=== PATIENT | female | born 1965 | race Two or more races ===

== ENCOUNTER 2019-02-23 | Emergency (ER) | payer SELFPAY ==
--- NOTE | 2019-02-23 02:51 | ER Document Report ---
HPI - HPI Time Seen by Provider: 02/23/19 02:20 Pain Level: 3 Context: Morbidly obese 53-year-old female with atrial fibrillation presents to the emergency department with chief complaint of right knee pain after a fall at the house. Patient states that she is overall immobile and will ambulate from her bed to the bathroom only. Patient states that whenever she gets up and she stops and stands she always falls. Tonight she was unable to get up and her son and EMS had to help lift her up. Patient denies any syncopal episode, denies palpitations, denies any chest pain. Patient denies any acute shortness of breath at this time. Patient states that she does have chronic right knee pain but it is acutely worse today. No other complaints. - MUSCULOSKELETAL Musculoskeletal: REPORTS: Extremity pain - RIGHT KNEE Past Medical History - Social History Smoking Status: Never Smoker Frequency of alcohol use: None Drug Abuse: None Family History: None Patient has suicidal ideation: No Patient has homicidal ideation: No - Past Medical History Cardiac Medical History: Reports: Hx Atrial Fibrillation, Hx Hypertension Vertical Provider Document - CONSTITUTIONAL Notes: PHYSICAL EXAMINATION: Reviewed vital signs and charting by RN GENERAL: Alert, interacts well. Morbidly obese HEAD: Normocephalic, atraumatic. EYES: Pupils equal and round. Extraocular movements intact. ENT: Oral mucosa moist, tongue midline. NECK: Full range of motion. Trachea midline. LUNGS: Clear to auscultation bilaterally, no wheezes, rales, or rhonchi. No respiratory distress. HEART: Irregularly irregular rhythm. No murmur ABDOMEN: soft, non-tender. No distention. Bowel sounds present EXTREMITIES: Moves all 4 extremities spontaneously. No edema, No cyanosis. Acute tenderness to palpation over the right patella PSYCH: Normal affect, normal mood. SKIN: Warm, dry, normal turgor. No rashes or lesions noted. Course - Re-evaluation Re-evalutation: 02/23/19 02:48 Exam is difficult due to body habitus but patient does have some tenderness over the right patella. Patient denies a syncopal episode so I have low suspicion the fall is related to her atrial fibrillation and possible CVA. Was a mechanical fall. I went to get a right knee complete to ensure that there is no fracture or patellar dislocation. 02/23/19 04:19 X-ray negative for any fracture or dislocation. It does show osteoarthritis the right knee with narrowing of the patellofemoral compartment. I explained this to patient and told her that she needs to follow-up with her primary doctor. Because patient is so morbidly obese due to her habitus she will be unable to walk. Patient at this time is stable for discharge. - Vital Signs Vital signs: Temp Pulse Resp BP Pulse Ox 97.5 F 95 18 123/67 94 02/23/19 00:00 02/23/19 00:00 02/23/19 00:00 02/23/19 00:00 02/23/19 00:00 Discharge - Discharge Clinical Impression: Right knee pain Qualifiers: Chronicity: acute Qualified Code(s): M25.561 - Pain in right knee Fall Qualifiers: Encounter type: initial encounter Qualified Code(s): W19.XXXA - Unspecified fall, initial encounter Condition: Stable Disposition: HOME, SELF-CARE Additional Instructions: You were seen in the emergency department for right knee pain after a fall just prior to arrival. X-ray did not show any concerning findings. This pain is chronic and it is important that you follow-up with your primary doctor to address this to try to get an orthopedic referral. Please return to the emergency department if you develop acute shortness of breath, chest pain, rapid heart rate, you pass out, or you have any other concerning symptoms.
--- NOTE | 2019-02-23 04:18 | RADIOLOGY REPORT (SQ) ---
EXAM: X-ray knee four or more views CLINICAL DATA: 53-year-old female with knee pain status post fall TECHNICAL DATA: Four x-ray views of the right knee were performed on 02/23/2019 at 2:55 AM. COMPARISONS: None FINDINGS: There is no evidence of acute fracture or dislocation. There is marked narrowing of the medial joint compartment. There is hypertrophic spurring of the femoral condyles, tibial plateau and posterior inferior patella. There is narrowing of the patellofemoral compartment. No pathologic lytic or sclerotic bone lesions are identified. Bone mineralization is decreased. No acute soft tissue abnormalities are identified. Vascular calcifications are noted along the popliteal artery and tibioperoneal trunk vessels. No definite joint effusion is identified. IMPRESSION: 1. No evidence of acute osseous injury. 2. Osteoarthritis of the right knee with greatest involvement of the medial joint compartment. 3. Diffuse bone demineralization.
[2019-02-23] MEDS ORDERED: HYDROCODONE/ACETAMINOPHEN 5-325 MG TABLET PO ONE (05:26)
[2019-02-23] MEDS ORDERED: IBUPROFEN 600 MG TABLET PO ONE (05:45)
[2019-02-23 09:43] VITALS: BP 106/64
== END 2019-02-23 09:47 | disposition home or self-care (01) ==
LOC: ER
DX: M25.561 Pain in right knee (principal); W19.XXXA Unspecified fall, initial encounter; Y92.009 Unspecified place in unspecified non-institutional (private) residence as the place of occurrence of the external cause; M17.11 Unilateral primary osteoarthritis, right knee; I10 Essential (primary) hypertension; I48.91 Unspecified atrial fibrillation; E66.01 Morbid (severe) obesity due to excess calories
CPT/HCPCS: 99283

== ENCOUNTER 2019-03-19 18:47 | Inpatient (IN) | payer MEDICAID ==
[2019-03-19] MEDS ORDERED: METHYLPREDNISOLONE INJ 125 MG/2 ML SDV IV ONE (20:43)
[2019-03-19] MEDS ORDERED: IPRATROPIUM/ALBUTEROL 0.5-2.5 MG/3 ML AMPUL NEB ONE (20:43)
--- NOTE | 2019-03-19 20:50 | ER Document Report ---
ED General - General Chief Complaint: Breathing Difficulty Stated Complaint: ALTERED MENTAL STATUS Time Seen by Provider: 03/19/19 20:23 TRAVEL OUTSIDE OF THE [place] IN LAST 30 DAYS: No - HPI Notes: This is a 54-year-old female who presents with a complaint of shortness of breath. Patient says she has had some cough and congestion for the past several days. Patient states that her family states she was "loopy" today. She is supposed to wear oxygen at home but has not been compliant with her oxygen t herapy. She denies any chest pain. She denies any headache. She is a poor historian. Describes her symptoms as moderate. There are no obvious aggravating relieving factors. - Related Data Allergies/Adverse Reactions: Sulfa (Sulfonamide Antibiotics) Allergy (Verified 02/23/19 00:37) Past Medical History - Social History Smoking Status: Unknown if Ever Smoked Family History: None Patient has suicidal ideation: No Patient has homicidal ideation: No - Past Medical History Cardiac Medical History: Reports: Hx Atrial Fibrillation, Hx Hypertension Endocrine Medical History: Reports: Hx Diabetes Mellitus Type 2 Psychiatric Medical History: Reports: Hx Anxiety, Hx Depression Review of Systems - Review of Systems Cardiovascular: denies: Chest pain Respiratory: Cough, Short of breath, Sputum Gastrointestinal: denies: Abdominal pain Neurological/Psychological: denies: Headaches -: Yes All other systems reviewed and negative Physical Exam - Vital signs Vitals: Temp Resp BP Pulse Ox 98.1 F 27 H 117/71 93 03/19/19 18:53 03/19/19 18:53 03/19/19 18:53 03/19/19 18:53 - General General appearance: Other - No acute distress. Patient appears somewhat somnolent. - HEENT Head: Normocephalic - Respiratory Respiratory status: No respiratory distress Breath sounds: Decreased air movement, Rales, Wheezing - Cardiovascular Rhythm: Regular Heart sounds: Normal auscultation Murmur: No - Abdominal Inspection: Morbidly Obese Distension: No distension Bowel sounds: Normal Tenderness: Nontender Organomegaly: No organomegaly - Extremities General upper extremity: Other - There is slight tenderness of the left shoulder. Patient notes that she fell on Sunday and hurt her shoulder. Bilateral lower extremity peripheral edema General lower extremity: Edema - Neurological Neuro grossly intact: Yes Orientation: AAOx4 [place]oy Coma Scale Eye Opening: Spontaneous [place] Coma Scale Verbal: Oriented [place] Coma Scale Motor: Obeys Commands [place] Coma Scale Total: 15 Speech: Normal Cranial nerves: Normal - Nonfocal neurologic exam. There is no motor, sensory or cerebellar deficits. - Skin Skin Temperature: Warm Skin Moisture: Dry Skin Color: Normal Course - Re-evaluation Re-evalutation: 03/19/19 20:49 Differential diagnosis includes CHF exacerbation versus pneumonia versus COPD.. I am concerned also about hypercarbia given the fact that patient has been noncompliant with her oxygen use. Will get a blood gas. 03/19/19 21:03 ABG shows hypercapnia with PCO2 of 73. Will put patient on BiPAP. 03/19/19 22:54 EKG shows atrial fibrillation at 96 bpm. No acute injury pattern. Patient's care discussed with Dr. Mccormick. Will admit. He recommends admission to the medical floor. 03/19/19 23:02 Patient reevaluated. Patient is tolerating BiPAP well. Hemodynamically stable. - Vital Signs Vital signs: Temp Pulse Resp BP Pulse Ox 98.1 F 94 15 115/73 99 03/19/19 18:53 03/19/19 19:00 03/19/19 22:01 03/19/19 22:01 03/19/19 22:01 - Laboratory Result Diagrams: 03/19/19 22:10 03/19/19 21:23 Laboratory results interpreted by me: 03/19/19 03/19/19 03/19/19 20:42 21:23 21:23 Hgb Hct MCHC RDW Carbonic Acid 2.22 H ABG pH 7.25 L ABG pCO2 73.8 H* ABG pO2 67.3 L ABG HCO3 31.5 H ABG Total CO2 33.8 H ABG O2 Saturation 89.5 L Carbon Dioxide 31 H BUN 62 H Creatinine 3.08 H Est GFR ( Amer) 19 L Est GFR (MDRD) Non-Af 16 L Total Bilirubin 1.6 H Direct Bilirubin 1.2 H AST 82 H Alkaline Phosphatase 181 H NT-Pro-B Natriuret Pep 9280 H Albumin 3.4 L 03/19/19 22:10 Hgb 10.8 L Hct 35.5 L MCHC 30.5 L RDW 23.4 H Carbonic Acid ABG pH ABG pCO2 ABG pO2 ABG HCO3 ABG Total CO2 ABG O2 Saturation Carbon Dioxide BUN Creatinine Est GFR ( Amer) Est GFR (MDRD) Non-Af Total Bilirubin Direct Bilirubin AST Alkaline Phosphatase NT-Pro-B Natriuret Pep Albumin Discharge - Discharge Clinical Impression: Acute respiratory failure with hypercapnia Acute exacerbation of CHF (congestive heart failure) Qualifiers: Heart failure type: unspecified Qualified Code(s): I50.9 - Heart failure, un specified Chronic kidney disease Qualifiers: Chronic kidney disease stage: unspecified stage Qualified Code(s): N18.9 - Chr onic kidney disease, unspecified Condition: Fair Disposition: ADMITTED INPATIENT Admitting Provider: Jace (Hospitalist) Unit Admitted: Medical Floor
[2019-03-19 20:58] LABS: ARTERIAL BLOOD BASE EXCESS 2.5 mmol/L; ARTERIAL BLOOD H2CO3 2.22 mmol/L (1.05-1.35); ARTERIAL BLOOD HCO3 31.5 mmol/L (20-24); ARTERIAL BLOOD O2 SATURATION 89.5 % (94-98); ARTERIAL BLOOD PH 7.25 (7.35-7.45); ARTERIAL BLOOD PO2 67.3 mmHg (80-100); ARTERIAL BLOOD TOTAL CO2 33.8 mmol/L (21-25)
[2019-03-19 20:59] LABS: ARTERIAL BLOOD FIO2 2L
[2019-03-19 21:00] LABS: ARTERIAL BLOOD PCO2 73.8 mmHg (35-45)
[2019-03-19] MEDS ORDERED: FUROSEMIDE INJ/PF 40 MG/4 ML SDV IV ONE (21:46)
[2019-03-19 22:09] LABS: ALBUMIN 3.4 g/dL (3.5-5.0); ALKALINE PHOSPHATASE 181 U/L (38-126); ANION GAP 14 (5-19); ASPARTATE AMINO TRANSFERASE 82 U/L (14-36); BILIRUBIN,DIRECT 1.2 mg/dL (0.0-0.4); BILIRUBIN,TOTAL 1.6 mg/dL (0.2-1.3); BLOOD UREA NITROGEN 62 mg/dL (7-20); CALCIUM 8.6 mg/dL (8.4-10.2); CARBON DIOXIDE 31 mmol/L (22-30); CHLORIDE 98 mmol/L (98-107); GLUCOSE 96 mg/dL (75-110); POTASSIUM 4.3 mmol/L (3.6-5.0)
--- NOTE | 2019-03-19 22:15 | RADIOLOGY REPORT (SQ) ---
EXAM DESCRIPTION: XR CHEST 1 VIEW COMPLETED DATE/TME: 03/19/2019 20:40 CLINICAL HISTORY: 54 years, Female, cough/congestion COMPARISON: 03/01/2019 chest NUMBER OF VIEWS: 1 TECHNIQUE: Portable chest LIMITATIONS: None. FINDINGS: Cardiomegaly. Osteopenia. Mixed interstitial and airspace opacities. No pneumothorax IMPRESSION: Cardiomegaly. Mixed interstitial and airspace opacities copyright 2010 [employer]- All Rights Reserved
--- NOTE | 2019-03-19 22:16 | RADIOLOGY REPORT (SQ) ---
EXAM DESCRIPTION: XR SHOULDER 2 OR MORE VIEWS COMPLETED DATE/TME: 03/19/2019 20:40 CLINICAL HISTORY: 54 years, Female, left shoulder pain COMPARISON: None. NUMBER OF VIEWS: 3 TECHNIQUE: 3 views left shoulder LIMITATIONS: None. FINDINGS: Negative for acute fracture or dislocation. Osteopenia. Minor degenerative changes of the acromioclavicular and glenohumeral joints IMPRESSION: Osteopenia. Minor degenerative change copyright 2010 [employer]- All Rights Reserved
[2019-03-19 22:21] LABS: NT PRO BNP 9280 pg/mL (<125)
[2019-03-19 22:29] LABS: TROPONIN I < 0.012 ng/mL
[2019-03-19 22:34] LABS: ABSOLUTE EOSINOPHILS # (AUTO) 0.1 10^3/uL (0.0-0.6); ABSOLUTE LYMPHOCYTES (AUTO) 1.1 10^3/uL (0.5-4.7); ABSOLUTE MONOCYTES (AUTO) 0.5 10^3/uL (0.1-1.4); ABSOLUTE NEUT (AUTO) 3.9 10^3/uL (1.7-8.2); BASOPHILS % (AUTO) 0.8 % (0-2); EOSINOPHILS % (AUTO) 1.7 % (0-6); HEMATOCRIT 35.5 % (36.0-47.0); HEMOGLOBIN 10.8 g/dL (12.0-15.5); LYMPHOCYTES % (AUTO) 19.9 % (13-45); MEAN CORPUSCULAR HGB CONC 30.5 g/dL (32.0-36.0); MONOCYTES % (AUTO) 8.2 % (3-13); PLATELET COUNT 169 10^3/uL (150-450); RED BLOOD COUNT 4.02 10^6/uL (3.72-5.28); RED CELL DISTRIBUTION WIDTH 23.4 % (11.5-14.0); SEGMENTED NEUTROPHILS % (AUTO) 69.4 % (42-78); TOTAL CELLS COUNTED % (AUTO) 100 %; WHITE BLOOD COUNT 5.7 10^3/uL (4.0-10.5)
[2019-03-19 22:43] LABS: MEAN CORPUSCULAR VOLUME 89 fl (80-97)
[2019-03-19] MEDS ORDERED: MORPHINE SULFATE 10 MG/ML INJ IV PRN (23:33)
[2019-03-19] MEDS ORDERED: LEVALBUTEROL HCL NEB 0.63 MG/3 ML AMPUL NEB PRN (23:33)
[2019-03-19] MEDS ORDERED: HYDRALAZINE HCL INJ/PF 20 MG/1 ML SDV IV PRN (23:33)
[2019-03-19] MEDS ORDERED: METOPROLOL TARTRATE PF/INJ 5 MG/5 ML SDV IV PRN (23:33)
[2019-03-19] MEDS ORDERED: GLUCAGON,HUMAN RECOMB 1 MG INJ IM PRN (23:35)
[2019-03-19] MEDS ORDERED: DEXTROSE 40% GEL 15 GM TUBE PO PRN ×2 (23:35)
[2019-03-19] MEDS ORDERED: DEXTROSE 50%-WATER 25 GM/50 ML DISP.SYRIN IV PRN ×2 (23:35)
[2019-03-20 00:15] LABS: APPEARANCE,URINE SLIGHTLY-CLOUDY; BILIRUBIN,URINE NEGATIVE (NEGATIVE); COLOR,URINE AMBER; GLUCOSE, URINE NEGATIVE (NEGATIVE); KETONES,URINE TRACE mg/dL (NEGATIVE); PROTEIN,URINE 100 mg/dL (NEGATIVE); URINE SPECIFIC GRAVITY 1.015
[2019-03-20] MEDS ORDERED: FUROSEMIDE INJ/PF 40 MG/4 ML SDV IV ONE (03:00)
[2019-03-20] MEDS: NITROGLYCERIN 2% OINTMENT 1 GM PACKET TP SCH ×4 (03:06→18:12)
[2019-03-20 03:52] LABS: VENOUS BLOOD BASE EXCESS 0.1 mmol/L; VENOUS BLOOD HCO3 30.9 mmol/L (20-32)
[2019-03-20 03:54] LABS: VENOUS BLOOD PH 7.16 (7.30-7.42)
[2019-03-20 03:55] LABS: VENOUS BLOOD PCO2 89.4 mmHg (35-63)
[2019-03-20 03:58] LABS: ABSOLUTE LYMPHOCYTES (AUTO) 0.5 10^3/uL (0.5-4.7); ABSOLUTE MONOCYTES (AUTO) 0.1 10^3/uL (0.1-1.4); ABSOLUTE NEUT (AUTO) 3.4 10^3/uL (1.7-8.2); BASOPHILS % (AUTO) 0.3 % (0-2); EOSINOPHILS % (AUTO) 0.5 % (0-6); HEMATOCRIT 36.2 % (36.0-47.0); HEMOGLOBIN 11.3 g/dL (12.0-15.5); LYMPHOCYTES % (AUTO) 12.8 % (13-45); MEAN CORPUSCULAR HEMOGLOBIN 27.4 pg (27.0-33.4); MEAN CORPUSCULAR HGB CONC 31.2 g/dL (32.0-36.0); MEAN CORPUSCULAR VOLUME 88 fl (80-97); MONOCYTES % (AUTO) 1.9 % (3-13); PLATELET COUNT 159 10^3/uL (150-450); RED BLOOD COUNT 4.13 10^6/uL (3.72-5.28); RED CELL DISTRIBUTION WIDTH 23.2 % (11.5-14.0); SEGMENTED NEUTROPHILS % (AUTO) 84.5 % (42-78); TOTAL CELLS COUNTED % (AUTO) 100 %
[2019-03-20 04:08] LABS: ANION GAP 11 (5-19); BLOOD UREA NITROGEN 65 mg/dL (7-20); CALCIUM 8.6 mg/dL (8.4-10.2); CARBON DIOXIDE 31 mmol/L (22-30); CHLORIDE 102 mmol/L (98-107); GLUCOSE 150 mg/dL (75-110); POTASSIUM 5.1 mmol/L (3.6-5.0)
--- NOTE | 2019-03-20 06:17 | PDOC H&P ---
History of Present Illness Admission Date/PCP: 03/19/2019 22:55 No local PCP Patient complains of: Dyspnea History of Present Illness: OBDULIO SAMUELS is a 54 year old female who presents the emergency room with a 4-day history of dyspnea. She admits that her dyspnea has been gradually worsening over the last 4 days and she has been noncompliant with the use of her home oxygen. Her dyspnea became more severe today and she tried using her home oxygen without improvement, causing her to come to the emergency room. She notes her dyspnea does worsen with activity/exertion. She admits an acco mpanying nonproductive cough and chest congestion. She admits associated increased edema of her lower extremities. She denies other associated or accompanying signs and symptoms. She admits prior similar episodes related to her heart failure. She has not identified any additional aggravating or ameliorating factors for her dyspnea. Patient is noted to be a very poor historian and is very difficult to get consistent and accurate responses in her interview at the present time. In the emergency room she was found to be hypoxic and hypercapnic requiring BiPAP therapy. BNP was elevated at 9280. Chest x-ray showed cardiomegaly with acute pulmonary edema. Patient was subsequently admitted to the hospital for further evaluation treatment. Past Medical History Cardiac Medical History: Reports: Atrial Fibrillation, Congestive Heart Failure - With prior episodes of acute pulmonary edema, Hypertension Denies: Coronary Artery Disease Pulmonary Medical History: Reports: Respiratory Failure - Chronic hypoxic respiratory failure on continuous home O2 therapy Denies: Asthma, Chronic Obstructive Pulmonary Disease (COPD) EENT Medical History: Denies: Cataracts, Ears - Hearing aids Neurological Medical History: Denies: Hemorrhagic CVA, Ischemic CVA, Seizures Endocrine Medical History: Reports: Diabetes Mellitus Type 2, Hypothyroidism, Obesity Denies: Diabetes Mellitus Type 1, Hyperthyroidism Renal/ Medical History: Reports: Chronic Kidney Disease Denies: Nephrolithiasis Malignancy Medical History: Reports: None GI Medical History: Denies: Cirrhosis, Hepatitis Musculoskeltal Medical History: Denies: Arthritis, Gout Skin Medical History: Denies: Eczema, Psoriasis Psychiatric Medical History: Reports: Depression Denies: Alcohol Dependency, Substance Abuse, Tobacco Dependency Traumatic Medical History: Reports: None Hematology: Reports: Anemia Denies: Bleeding Tendencies Infectious Medical History: Reports: None Past Surgical History Past Surgical History: Reports: None Social History Information Source: Patient Lives with: Family Smoking Status: Never Smoker Electronic Cigarette use?: No Frequency of Alcohol Use: None Hx Recreational Drug Use: No Drugs: None Hx Prescription Drug Abuse: No - Advance Directive Resuscitation Status: Full Code Surrogate healthcare decision maker:: Tai Samuels Family History Family History: denies: CAD, DM, Hypertension, Malignancy, Thyroid Disfunction Parental Family History Reviewed: Yes Children Family History Reviewed: No Sibling(s) Family History Reviewed.: Yes Medication/Allergy Home Medications: Amiodarone HCl [Cordarone 200 mg Tablet] 200 mg PO DAILY 02/27/19 Atenolol [Tenormin 100 mg Tablet] 150 mg PO DAILY 02/27/19 Furosemide [Lasix 40 mg Tablet] 60 mg PO DAILY 02/27/19 Levothyroxine Sodium [Synthroid] 200 mcg PO MOTHSA@0600 02/27/19 Levothyroxine Sodium [Synthroid] 300 mcg PO BUNN@0600 02/27/19 Acetaminophen [Tylenol 325 mg Tablet] 650 mg PO Q4HP PRN tablet 03/14/19 Blood-Glucose Meter [Blood Glucose Monitoring] 1 each MC DAILY #1 kit 03/14/19 Calcitriol [Rocaltrol 0.25 mcg Capsule] 0.25 mcg PO MoWeFr@1000 #90 capsule 03/14/19 Docusate Sodium [Colace 100 mg Capsule] 200 mg PO BID capsule 03/14/19 Ferrous Sulfate [Feosol 325 mg Tablet] 325 mg PO DAILY #30 tablet 03/14/19 Lidocaine [Lidoderm 5% (700 mg) Transdermal Patch] 1 patch TP DAILY #30 a dh..patch 03/14/19 Melatonin [Melatonin 5 mg Tablet] 5 mg PO QHS #30 tablet 03/14/19 Metformin HCl [Glucophage] 500 mg PO BID #60 tablet 03/14/19 Polyethylene Glycol 3350 [Miralax Powder 17 gm/Packet] 17 gm PO DAILYP PRN powd.pack 03/14/19 Allergies/Adverse Reactions: Sulfa (Sulfonamide Antibiotics) Allergy (Verified 02/23/19 00:37) Review of Systems Constitutional: ABSENT: chills, fever(s) Eyes: ABSENT: visual disturbances, other - Eye pain Ears: ABSENT: hearing changes, other - Ear pain Nose, Mouth, and Throat: ABSENT: headache(s), mouth pain, sore throat Cardiovascular: PRESENT: as per HPI, dyspnea on exertion, edema. ABSENT: chest pain, orthropnea, palpitations Respiratory: PRESENT: cough, dyspnea. ABSENT: sputum Gastrointestinal: ABSENT: abdominal pain, constipation, diarrhea, nausea, vomiting Genitourinary: ABSENT: difficulty urinating, dysuria, hematuria Musculoskeletal: ABSENT: back pain, joint swelling, muscle weakness Integumentary: ABSENT: pruritus, rash Neurological: ABSENT: confusion, convulsions, focal weakness, memory loss, syncope Psychiatric: ABSENT: anxiety, depression Endocrine: ABSENT: cold intolerance, heat intolerance Hematologic/Lymphatic: ABSENT: easy bleeding, easy bruising Allergic/Immunologic: ABSENT: seasonal rhinorrhea Physical Exam Vital Signs: Temp Pulse Resp BP Pulse Ox 98.1 F 94 26 H 122/59 L 93 03/19/19 18:53 03/19/19 19:00 03/19/19 21:35 03/19/19 21:01 03/19/19 21:35 Intake & Output 03/17/19 03/18/19 03/19/19 23:59 23:59 23:59 Weight 219.4 kg General appearance: PRESENT: no acute distress, cooperative, morbidly obese, other - Somewhat somnolent but arousable on BiPAP, very poor historian Head exam: PRESENT: atraumatic, normocephalic Eye exam: PRESENT: conjunctiva pink. ABSENT: conjunctival injection, scleral icterus Ear exam: PRESENT: normal external ear exam. ABSENT: bleeding, drainage Mouth exam: PRESENT: dry mucosa, neck supple Neck exam: PRESENT: JVD - Bilateral at 30 degrees. ABSENT: thyromegaly, tracheal deviation Respiratory exam: PRESENT: rales - Bilateral rales in the lower one thirds of all lung lopez, symmetrical, other - On BiPAP Cardiovascular exam: PRESENT: gallop - S4 gallop rhythm, RRR. ABSENT: clicks, rubs Pulses: PRESENT: normal radial pulses, normal dorsalis pedis pul Vascular exam: PRESENT: normal capillary refill. ABSENT: pallor GI/Abdominal exam: PRESENT: normal bowel sounds, soft, other - 3+ pitting edema of abdominal pannus is noted Rectal exam: PRESENT: deferred Extremities exam: PRESENT: pedal edema, other - 3+ pitting edema of the bilateral lower extremities from the hip to the foot is noted. ABSENT: joint swelling Musculoskeletal exam: ABSENT: deformity, dislocation Neurological exam: PRESENT: awake - Arousable but somewhat somnolent at time of exam, very poor historian, oriented to person, oriented to place, oriented to time, oriented to situation, CN II-XII grossly intact Psychiatric exam: PRESENT: appropriate affect, normal mood Skin exam: PRESENT: dry, intact, warm. ABSENT: jaundice, rash, urticaria Results Laboratory Results: 03/19/19 22:10 03/19/19 21:23 03/19/19 03/19/19 03/19/19 20:42 21:23 21:23 WBC Cancelled RBC Cancelled Hgb Cancelled Hct Cancelled MCV Cancelled MCH Cancelled MCHC Cancelled RDW Cancelled Plt Count Cancelled Seg Neutrophils % Cancelled Carbonic Acid 2.22 H HCO3/H2CO3 Ratio 14:1 ABG pH 7.25 L ABG pCO2 73.8 H* ABG pO2 67.3 L ABG HCO3 31.5 H ABG O2 Saturation 89.5 L ABG Base Excess 2.5 FiO2 2L Sodium 142.6 Potassium 4.3 Chloride 98 Carbon Dioxide 31 H Anion Gap 14 BUN 62 H Creatinine 3.08 H Est GFR ( Amer) 19 L Glucose 96 Lactic Acid Calcium 8.6 Total Bilirubin 1.6 H AST 82 H Alkaline Phosphatase 181 H Total Protein 8.0 Albumin 3.4 L 03/19/19 03/19/19 21:23 22:10 WBC 5.7 RBC 4.02 Hgb 10.8 L Hct 35.5 L MCV 89 D MCH 27.0 MCHC 30.5 L RDW 23.4 H Plt Count 169 Seg Neutrophils % 69.4 Carbonic Acid HCO3/H2CO3 Ratio ABG pH ABG pCO2 ABG pO2 ABG HCO3 ABG O2 Saturation ABG Base Excess FiO2 Sodium Potassium Chloride Carbon Dioxide Anion Gap BUN Creatinine Est GFR ( Amer) Glucose Lactic Acid 1.0 Calcium Total Bilirubin AST Alkaline Phosphatase Total Protein Albumin 03/19/19 21:23 Troponin I < 0.012 NT-Pro-B Natriuret Pep 9280 H Impressions: Chest X-Ray 03/19/19 20:40 IMPRESSION: Cardiomegaly. Mixed interstitial and airspace opacities copyright 2010 [employer]- All Rights Reserved Shoulder X-Ray 03/19/19 20:40 IMPRESSION: Osteopenia. Minor degenerative change copyright 2010 [employer]- All Rights Reserved Assessment and Plan - Diagnosis (1) Acute pulmonary edema with congestive heart failure Is this a current diagnosis for this admission?: Yes (2) Acute on chronic diastolic congestive heart failure Is this a current diagnosis for this admission?: Yes (3) Acute on chronic respiratory failure with hypoxia and hypercapnia Is this a current diagnosis for this admission?: Yes (4) History of atrial fibrillation Is this a current diagnosis for this admission?: Yes (5) Hypothyroid Qualifiers: Hypothyroidism type: unspecified Qualified Code(s): E03.9 - Hypothyroidism, unspecified Is this a current diagnosis for this admission?: Yes (6) Chronic kidney disease Qualifiers: Chronic kidney disease stage: stage 4 (severe) Qualified Code(s): N18.4 - Chronic kidney disease, stage 4 (severe) Is this a current diagnosis for this admission?: Yes (7) Morbid obesity Is this a current diagnosis for this admission?: Yes (8) Hypertension Qualifiers: Hypertension type: essential hypertension Qualified Code(s): I10 - Essen tial (primary) hypertension Is this a current diagnosis for this admission?: Yes (9) Anemia Qualifiers: Anemia type: due to chronic kidney disease Chronic kidney disease stage: stage 4 (severe) Qualified Code(s): N18.4 - Chronic kidney disease, stage 4 (severe); D63.1 - Anemia in chronic kidney disease Is this a current diagnosis for this admission?: Yes (10) Diabetes mellitus type 2 in obese Is this a current diagnosis for this admission?: Yes - Plan Summary Summary: Patient will be admitted to a medical bed where she will receive routine supportive and symptomatic cares. She will be maintained on BiPAP as long as necessary to maintain an adequate oxygen saturation and prevent hypercapnia. Her blood gases will be monitored utilizing arterial and venous gases as needed. Her acute heart failure exacerbation with pulmonary edema will be treated with IV morphine sulfate 2 mg every hour as needed for severe dyspnea and nitroglycerin 2% ointment 1 g every 6 hours. She will be restarted on her usual home medications, as appropriate, as soon as her home medication list has gone through the reconciliation process. Aggressive therapy will most likely be required for her ongoing congestive heart failure utilizing Demadex and eliminating the use of ACEs and ARBs. Her blood pressure will be controlled utilizing hydralazine and/or metoprolol administered intravenously until her regular medications can be restarted. Daily CBCs, metabolic profiles and magnesium levels will be obtained as appropriate. A diabetic restricted, cardiac restricted and nephrologic restricted diet will be in place. Before meals and at bedtime Accu-Cheks will be performed with sliding scale regular insulin for hyperglycemia and a hypoglycemic protocol also in place. - Time Time Spent with patient: 15-24 minutes Medications reviewed and adjusted accordingly: Yes Anticipated discharge: Home with Homehealth - Inpatient Certification Based on my medical assessment, after consideration of the patient's comorbidities, presenting symptoms, or acuity I expect that the services needed warrant INPATIENT care.: Yes I certify that my determination is in accordance with my understanding of Medicare's requirements for reasonable and necessary INPATIENT services [42 CFR 412.3e].: Yes Medical Necessity: Significant Comorbidiites Make Outpatient Treatment Too Risky, Need Close Monitoring Due to Risk of Patient Decompensation, Need For Continuous Telemetry Monitoring, Risk of Complication if Not Cared For in Hospital
[2019-03-20] MEDS: BUMETANIDE INJ/PF 1 MG/4 ML SDV IV SCH ×3 (07:00→18:11)
[2019-03-20] MEDS: HEPARIN SOD (PORCINE) 5,000 UNIT/ML 1 ML VIAL SUBCUT SCH ×3 (07:02→21:47)
[2019-03-20] MEDS: INSULIN REG, HUMAN 100 UNIT/ML 3 ML VIAL (PYX) SUBCUT SCH ×3 (11:12→21:43)
--- NOTE | 2019-03-20 16:26 | EKG REPORT ---
SEVERITY:- ABNORMAL ECG - ATRIAL FIBRILLATION NONSPECIFIC INTRAVENTRICULAR CONDUCTION DELAY BORDERLINE ST DEPRESSION, LATERAL LEADS : Confirmed by: Arianna Stauffer MD 20-Mar-2019 16:25:06
--- NOTE | 2019-03-20 16:58 | PDOC PROGRESS REPORT ---
Subjective Progress Note for:: 03/20/19 Subjective:: This is a super morbidly obese 54-year-old female who is lying flat in bed. BiPAP is in place. She briefly opens her eyes and then falls back asleep. She does not appear to be in distress and in fact is breathing comfortably. Reason For Visit: ACUTE ON CHRONIC DIASTOLIC CONGESTIVE HEART FAILUR Physical Exam Vital Signs: Temp Pulse Resp BP Pulse Ox 97.9 F 94 17 153/79 H 97 03/20/19 15:54 03/20/19 15:54 03/20/19 15:54 03/20/19 15:54 03/20/19 15:54 Intake & Output 03/19/19 03/20/19 03/21/19 06:59 06:59 06:59 Output Total 0 Balance 0 Weight 219.4 kg General appearance: PRESENT: no acute distress, morbidly obese, well-developed Head exam: PRESENT: atraumatic, normocephalic Ear exam: PRESENT: normal external ear exam. ABSENT: bleeding, drainage Mouth exam: PRESENT: other - Dusky discoloration on the tip of her nose. Neck exam: PRESENT: other - Very difficult to assess due to body habitus Respiratory exam: PRESENT: clear to auscultation rachel - Bilaterally anteriorly, decreased breath sounds, symmetrical, tachypnea, other - Very difficult to assess due to body habitus. ABSENT: wheezes Cardiovascular exam: PRESENT: RRR, +S1, +S2, other - S4 Pulses: PRESENT: other - Unable to assess due to body habitus GI/Abdominal exam: PRESENT: diminished bowel sounds, soft, other - Markedly protuberant abdomen with redundant adipose tissue Rectal exam: PRESENT: deferred Gentrourinary exam: PRESENT: indwelling catheter Extremities exam: PRESENT: other - Extremely large extremities. Much of this is due to excess adipose tissue. The legs do display some pitting edema. Neurological exam: PRESENT: awake - Awakens very briefly to gentle touch and verbal communication. ABSENT: alert Psychiatric exam: PRESENT: flat affect. ABSENT: agitated, anxious Skin exam: PRESENT: cyanosis - Specifically the tip of her nose Results Laboratory Results: 03/20/19 03:06 03/20/19 03:06 03/19/19 03/19/19 03/19/19 20:42 21:23 21:23 WBC Cancelled RBC Cancelled Hgb Cancelled Hct Cancelled MCV Cancelled MCH Cancelled MCHC Cancelled RDW Cancelled Plt Count Cancelled Seg Neutrophils % Cancelled Carbonic Acid 2.22 H HCO3/H2CO3 Ratio 14:1 ABG pH 7.25 L ABG pCO2 73.8 H* ABG pO2 67.3 L ABG HCO3 31.5 H ABG O2 Saturation 89.5 L ABG Base Excess 2.5 VBG pH VBG pCO2 VBG HCO3 VBG Base Excess FiO2 2L Sodium 142.6 Potassium 4.3 Chloride 98 Carbon Dioxide 31 H Anion Gap 14 BUN 62 H Creatinine 3.08 H Est GFR ( Amer) 19 L Glucose 96 Lactic Acid Calcium 8.6 Magnesium Total Bilirubin 1.6 H AST 82 H Alkaline Phosphatase 181 H Total Protein 8.0 Albumin 3.4 L Urine Color Urine Appearance Urine pH Ur Specific [place] Urine Protein Urine Glucose (UA) Urine Ketones Urine Blood Urine RBC (Auto) 03/19/19 03/19/19 03/19/19 21:23 22:10 23:52 WBC 5.7 RBC 4.02 Hgb 10.8 L Hct 35.5 L MCV 89 D MCH 27.0 MCHC 30.5 L RDW 23.4 H Plt Count 169 Seg Neutrophils % 69.4 Carbonic Acid HCO3/H2CO3 Ratio ABG pH ABG pCO2 ABG pO2 ABG HCO3 ABG O2 Saturation ABG Base Excess VBG pH VBG pCO2 VBG HCO3 VBG Base Excess FiO2 Sodium Potassium Chloride Carbon Dioxide Anion Gap BUN Creatinine Est GFR ( Amer) Glucose Lactic Acid 1.0 Calcium Magnesium Total Bilirubin AST Alkaline Phosphatase Total Protein Albumin Urine Color DREW Urine Appearance SLIGHTLY-CLOUDY Urine pH 5.0 Ur Specific [place] 1.015 Urine Protein 100 H Urine Glucose (UA) NEGATIVE Urine Ketones TRACE H Urine Blood SMALL H Urine RBC (Auto) 3 03/20/19 03/20/19 03/20/19 03:06 03:06 03:06 WBC 4.0 RBC 4.13 Hgb 11.3 L Hct 36.2 MCV 88 MCH 27.4 MCHC 31.2 L RDW 23.2 H Plt Count 159 Seg Neutrophils % 84.5 H Carbonic Acid HCO3/H2CO3 Ratio ABG pH ABG pCO2 ABG pO2 ABG HCO3 ABG O2 Saturation ABG Base Excess VBG pH 7.16 L* VBG pCO2 89.4 H* VBG HCO3 30.9 VBG Base Excess 0.1 FiO2 Sodium 144.2 Potassium 5.1 H Chloride 102 Carbon Dioxide 31 H Anion Gap 11 BUN 65 H Creatinine 3.19 H Est GFR ( Amer) 18 L Glucose 150 H Lactic Acid Calcium 8.6 Magnesium 2.2 Total Bilirubin AST Alkaline Phosphatase Total Protein Albumin Urine Color Urine Appearance Urine pH Ur Specific [place] Urine Protein Urine Glucose (UA) Urine Ketones Urine Blood Urine RBC (Auto) 03/19/19 03/20/19 03/20/19 21:23 03:06 10:15 Troponin I < 0.012 < 0.012 < 0.012 NT-Pro-B Natriuret Pep 9280 H 03/20/19 15:35 Troponin I < 0.012 NT-Pro-B Natriuret Pep Impressions: Chest X-Ray 03/19/19 20:40 IMPRESSION: Cardiomegaly. Mixed interstitial and airspace opacities copyright 2010 [email or web address]- All Rights Reserved Shoulder X-Ray 03/19/19 20:40 IMPRESSION: Osteopenia. Minor degenerative change copyright 2010 [email or web address]- All Rights Reserved Assessment and Plan - Diagnosis (1) Acute pulmonary edema with congestive heart failure Is this a current diagnosis for this admission?: Yes Plan: 03/20/2019-we will institute very aggressive diuresis. Patient requires oxygen supplementation. (2) Acute on chronic diastolic congestive heart failure Is this a current diagnosis for this admission?: Yes Plan: 03/20/2019-aggressive diuretic regimen. Continue cardiac medications. (3) Acute on chronic respiratory failure with hypoxia and hypercapnia Is this a current diagnosis for this admission?: Yes Plan: 03/20/2019-BiPAP for hypercapnia. Oxygen supplementation for hypoxia. (4) Longstanding persistent atrial fibrillation Is this a current diagnosis for this admission?: Yes Plan: 03/20/2019-continue current cardiac medications. Patient is not on anticoagulation according to her home medication regimen. I will investigate further and see if there is a contraindication. (5) Hypothyroid Qualifiers: Hypothyroidism type: unspecified Qualified Code(s): E03.9 - Hypothyroidism, unspecified Is this a current diagnosis for this admission?: Yes Plan: 03/20/2019-continue levothyroxine (6) Moderate to severe pulmonary hypertension Is this a current diagnosis for this admission?: Yes Plan: 03/20/2019-multiple contributory factors including her obesity and heart disease. Continue BiPAP and try to control systemic blood pressure. (7) Chronic kidney disease Qualifiers: Chronic kidney disease stage: stage 4 (severe) Qualified Code(s): N18.4 - Chronic kidney disease, stage 4 (severe) Is this a current diagnosis for this admission?: Yes Plan: 03/20/2019-hopefully with aggressive diuresis renal function will improve. Hyperkalemia is likely secondary to her kidney disease. Consider nephrology consult. The patient would be a very poor dialysis candidate. (8) Morbid obesity with body mass index of 70 and over in adult Is this a current diagnosis for this admission?: Yes Plan: 03/20/2019-BMI is 94.5. Certainly a negative contributing factor to many of her comorbidities. The patient would need referral to a bariatric specialty center for weight management. (9) Hypertension Qualifiers: Hypertension type: essential hypertension Qualified Code(s): I10 - Essential (primary) hypertension Is this a current diagnosis for this admission?: Yes Plan: 03/20/2019-continue current cardiac medications (10) Anemia Qualifiers: Anemia type: due to chronic kidney disease Chronic kidney disease stage: stage 4 (severe) Qualified Code(s): N18.4 - Chronic kidney disease, stage 4 (severe); D63.1 - Anemia in chronic kidney disease Is this a current diagnosis for this admission?: Yes Plan: 03/20/2019-continue to monitor during hospitalization. At this point she does not require erythropoietin analogs. (11) Diabetes mellitus type 2 in obese Is this a current diagnosis for this admission?: Yes Plan: 03/20/2019-discontinue metformin since her GFR is less than 30. Insulin sliding scale for now. (12) Hyperkalemia Is this a current diagnosis for this admission?: Yes Plan: 03/20/2019-serum potassium was slightly elevated today. The aggressive diuresis should drop her potassium. She will likely need potassium supplementation. - Plan Summary Summary: Patient will be admitted to a medical bed where she will receive routine supportive and symptomatic cares. She will be maintained on BiPAP as long as necessary to maintain an adequate oxygen saturation and prevent hypercapnia. Her blood gases will be monitored utilizing arterial and venous gases as needed. Her acute heart failure exacerbation with pulmonary edema will be treated with IV morphine sulfate 2 mg every hour as needed for severe dyspnea and nitrogl ycerin 2% ointment 1 g every 6 hours. She will be restarted on her usual home medications, as appropriate, as soon as her home medication list has gone through the reconciliation process. Aggressive therapy will most likely be required for her ongoing congestive heart failure utilizing Demadex and eliminating the use of ACEs and ARBs. Her blood pressure will be controlled utilizing hydralazine and/or metoprolol administered intravenously until her regular medications can be restarted. Daily CBCs, metabolic profiles and magnesium levels will be obtained as appropriate. A diabetic restricted, cardiac restricted and nephrologic restricted diet will be in place. Before meals and at bedtime Accu-Cheks will be performed with sliding scale regular insulin for hyperglycemia and a hypoglycemic protocol also in place. - Time Time Spent with patient: 15-24 minutes Medications reviewed and adjusted accordingly: Yes
[2019-03-20 18:07] LABS: ARTERIAL BLOOD H2CO3 1.56 mmol/L (1.05-1.35); ARTERIAL BLOOD HCO3 27.3 mmol/L (20-24); ARTERIAL BLOOD O2 SATURATION 95.9 % (94-98); ARTERIAL BLOOD PCO2 51.7 mmHg (35-45); ARTERIAL BLOOD PH 7.34 (7.35-7.45); ARTERIAL BLOOD PO2 86.1 mmHg (80-100); ARTERIAL BLOOD TOTAL CO2 28.9 mmol/L (21-25)
[2019-03-20 18:09] LABS: ARTERIAL BLOOD FIO2 28%
[2019-03-21] MEDS: BUMETANIDE INJ/PF 1 MG/4 ML SDV IV SCH ×4 (01:08→17:45)
[2019-03-21] MEDS: NITROGLYCERIN 2% OINTMENT 1 GM PACKET TP SCH ×4 (01:12→17:44)
[2019-03-21 06:38] LABS: VENOUS BLOOD BASE EXCESS 4.5 mmol/L; VENOUS BLOOD PCO2 48.8 mmHg (35-63); VENOUS BLOOD PH 7.41 (7.30-7.42)
[2019-03-21] MEDS: HEPARIN SOD (PORCINE) 5,000 UNIT/ML 1 ML VIAL SUBCUT SCH ×3 (06:52→21:59)
[2019-03-21 07:05] LABS: ALBUMIN 3.2 g/dL (3.5-5.0); ANION GAP 14 (5-19); BLOOD UREA NITROGEN 73 mg/dL (7-20); CALCIUM 8.4 mg/dL (8.4-10.2); CARBON DIOXIDE 29 mmol/L (22-30); CHLORIDE 100 mmol/L (98-107); GLUCOSE 142 mg/dL (75-110); PHOSPHORUS 4.2 mg/dL (2.5-4.5); POTASSIUM 4.4 mmol/L (3.6-5.0)
[2019-03-21] MEDS: INSULIN REG, HUMAN 100 UNIT/ML 3 ML VIAL (PYX) SUBCUT SCH ×4 (08:47→21:54)
[2019-03-21] MEDS: CALCITRIOL 0.25 MCG CAPSULE PO SCH (08:56)
--- NOTE | 2019-03-21 09:10 | PDOC PROGRESS REPORT ---
Subjective Progress Note for:: 03/21/19 Subjective:: Patient is awake this morning. She is still on BiPAP. Very obvious prolonged expiratory phase. Denies being in pain. She reports that she does not feel any better than yesterday. Reason For Visit: ACUTE ON CHRONIC DIASTOLIC CONGESTIVE HEART FAILUR Physical Exam Vital Signs: Temp Pulse Resp BP Pulse Ox 97.7 F 97 19 132/67 H 95 03/21/19 07:32 03/21/19 07:32 03/21/19 07:32 03/21/19 07:32 03/21/19 07:32 Intake & Output 03/20/19 03/21/19 03/22/19 06:59 06:59 06:59 Intake Total 0 Output Total 0 1525 Balance 0 -1525 Weight 219.4 kg General appearance: PRESENT: cooperative, mild distress, morbidly obese, well- developed, well-nourished Head exam: PRESENT: atraumatic, normocephalic Eye exam: PRESENT: conjunctiva pink. ABSENT: scleral icterus Ear exam: PRESENT: normal external ear exam. ABSENT: bleeding, drainage Mouth exam: PRESENT: other - BiPAP mask in place Teeth exam: PRESENT: other - BiPAP mask in place Throat exam: PRESENT: other - BiPAP mask in place Neck exam: PRESENT: other - Unable to assess due to extremely large neck with redundant skin/tissue Respiratory exam: PRESENT: rales - Bilateral bases, symmetrical, tachypnea. ABSENT: accessory muscle use, chest wall tenderness, rhonchi, wheezes Cardiovascular exam: PRESENT: RRR, +S1, +S2, tachycardia GI/Abdominal exam: PRESENT: normal bowel sounds - Bowel sounds seem normal but distant, soft, other - Pendulous abdomen. ABSENT: guarding Rectal exam: PRESENT: deferred Gentrourinary exam: PRESENT: indwelling catheter Extremities exam: PRESENT: other - 4+ edema Musculoskeletal exam: ABSENT: ambulatory Neurological exam: PRESENT: alert, awake, oriented to person, oriented to place, oriented to situation Psychiatric exam: PRESENT: flat affect. ABSENT: agitated, anxious Skin exam: PRESENT: other - Multiple skin folds. Skin fold on the left ankle has some erythema and slight irritation of the skin. Small bruises at sites from blood draw. Still with cyanosis on the tip of her nose. Results Laboratory Results: 03/20/19 03:06 03/21/19 06:28 03/20/19 03/21/19 03/21/19 17:50 06:28 06:28 Carbonic Acid 1.56 H HCO3/H2CO3 Ratio 17:1 ABG pH 7.34 L ABG pCO2 51.7 H ABG pO2 86.1 ABG HCO3 27.3 H ABG O2 Saturation 95.9 ABG Base Excess 1.0 VBG pH 7.41 VBG pCO2 48.8 VBG HCO3 30.0 VBG Base Excess 4.5 FiO2 28% Sodium 143.3 Potassium 4.4 Chloride 100 Carbon Dioxide 29 Anion Gap 14 BUN 73 H Creatinine 3.17 H Est GFR ( Amer) 18 L Glucose 142 H Calcium 8.4 Phosphorus 4.2 Magnesium 2.3 Albumin 3.2 L 03/19/19 03/20/19 03/20/19 21:23 03:06 10:15 Troponin I < 0.012 < 0.012 < 0.012 NT-Pro-B Natriuret Pep 9280 H 03/20/19 15:35 Troponin I < 0.012 NT-Pro-B Natriuret Pep Impressions: Chest X-Ray 03/19/19 20:40 IMPRESSION: Cardiomegaly. Mixed interstitial and airspace opacities copyright 2010 [employer]- All Rights Reserved Shoulder X-Ray 03/19/19 20:40 IMPRESSION: Osteopenia. Minor degenerative change copyright 2010 [employer]- All Rights Reserved Assessment and Plan - Diagnosis (1) Acute pulmonary edema with congestive heart failure Is this a current diagnosis for this admission?: Yes Plan: 03/20/2019-we will institute very aggressive diuresis. Patient requires oxygen supplementation. 03/21/2019-continue aggressive diuresis. Net negative fluid balance yesterday 1.5 L. (2) Acute on chronic diastolic congestive heart failure Is this a current diagnosis for this admission?: Yes Plan: 03/20/2019-aggressive diuretic regimen. Continue cardiac medications. 03/21/2019-continue aggressive diuresis. Goal is to continue a net negative fluid balance. (3) Acute on chronic respiratory failure with hypoxia and hypercapnia Is this a current diagnosis for this admission?: Yes Plan: 03/20/2019-BiPAP for hypercapnia. Oxygen supplementation for hypoxia. 03/21/2019-venous blood gas reveals significant improvement in PCO2. Will start trials of nasal cannula. Oxygen saturation goal is 90 to 94%. (4) Longstanding persistent atrial fibrillation Is this a current diagnosis for this admission?: Yes Plan: 03/20/2019-continue current cardiac medications. Patient is not on anticoagulation according to her home medication regimen. I will investigate further and see if there is a contraindication. 03/21/2019-by auscultation patient seems to be in a sinus rhythm at this time. (5) Hypothyroid Qualifiers: Hypothyroidism type: unspecified Qualified Code(s): E03.9 - Hypothyroidism, unspecified Is this a current diagnosis for this admission?: Yes Plan: 03/20/2019-continue levothyroxine 03/21/2019-continue levothyroxine (6) Moderate to severe pulmonary hypertension Is this a current diagnosis for this admission?: Yes Plan: 03/20/2019-multiple contributory factors including her obesity and heart disease. Continue BiPAP and try to control systemic blood pressure. 03/21/2019-try to maintain reasonable systemic blood pressure control. Utilize BiPAP at night. (7) Chronic kidney disease Qualifiers: Chronic kidney disease stage: stage 4 (severe) Qualified Code(s): N18.4 - Chronic kidney disease, stage 4 (severe) Is this a current diagnosis for this admission?: Yes Plan: 03/20/2019-hopefully with aggressive diuresis renal function will improve. Hyperkalemia is likely secondary to her kidney disease. Consider nephrology consult. The patient would be a very poor dialysis candidate. 03/21/2019-continue aggressive diuresis. No significant change in function yet. Will monitor closely. (8) Morbid obesity with body mass index of 70 and over in adult Is this a current diagnosis for this admission?: Yes Plan: 03/20/2019-BMI is 94.5. Certainly a negative contributing factor to many of her comorbidities. The patient would need referral to a bariatric specialty center for weight management. 03/21/2019-continue current management (9) Hypertension Qualifiers: Hypertension type: essential hypertension Qualified Code(s): I10 - Essential (primary) hypertension Is this a current diagnosis for this admission?: Yes Plan: 03/20/2019-continue current cardiac medications 03/21/2019-reasonable blood pressure control. Continue current medications. (10) Anemia Qualifiers: Anemia type: due to chronic kidney disease Chronic kidney disease stage: stage 4 (severe) Qualified Code(s): N18.4 - Chronic kidney disease, stage 4 (severe); D63.1 - Anemia in chronic kidney disease Is this a current diagnosis for this admission?: Yes Plan: 03/20/2019-continue to monitor during hospitalization. At this point she does not require erythropoietin analogs. 03/21/2019-hemoglobin stable. Continue to monitor. (11) Diabetes mellitus type 2 in obese Is this a current diagnosis for this admission?: Yes Plan: 03/20/2019-discontinue metformin since her GFR is less than 30. Insulin sliding scale for now. 03/21/2019-continue current treatment regimen. Accu-Cheks are mostly between 101 and 150. (12) Hyperkalemia Is this a current diagnosis for this admission?: Yes Plan: 03/20/2019-serum potassium was slightly elevated today. The aggressive diuresis should drop her potassium. She will likely need potassium supplementation. 03/21/2019-resolved with diuresis. Will need to monitor potassium and likely require supplementation with continue diuresis. - Plan Summary Summary: Patient will be admitted to a medical bed where she will receive routine supportive and symptomatic cares. She will be maintained on BiPAP as long as necessary to maintain an adequate oxygen saturation and prevent hypercapnia. Her blood gases will be monitored utilizing arterial and venous gases as needed. Her acute heart failure exacerbation with pulmonary edema will be treated with IV morphine sulfate 2 mg every hour as needed for severe dyspnea and nitroglycerin 2% ointment 1 g every 6 hours. She will be restarted on her usual home medications, as appropriate, as soon as her home medication list has gone through the reconciliation process. Aggressive therapy will most likely be required for her ongoing congestive heart failure utilizing Demadex and eliminating the use of ACEs and ARBs. Her blood pressure will be controlled utilizing hydralazine and/or metoprolol administered intravenously until her regular medications can be restarted. Daily CBCs, metabolic profiles and magnes ium levels will be obtained as appropriate. A diabetic restricted, cardiac restricted and nephrologic restricted diet will be in place. Before meals and at bedtime Accu-Cheks will be performed with sliding scale regular insulin for hyperglycemia and a hypoglycemic protocol also in place. - Time Time Spent with patient: 15-24 minutes Medications reviewed and adjusted accordingly: Yes
[2019-03-21] MEDS: LEVOTHYROXINE SODIUM 0.1 MG TABLET PO SCH (09:15)
[2019-03-21] MEDS: AMLODIPINE BESYLATE 10 MG TABLET PO SCH (09:15)
[2019-03-21] MEDS: AMIODARONE HCL 200 MG TABLET PO SCH (09:15)
[2019-03-21] MEDS: LIDOCAINE 5% (700 MG) TRANSDERMAL ADH..PATCH TP SCH (09:16)
[2019-03-21] MEDS: ATENOLOL 50 MG TABLET PO SCH (09:16)
[2019-03-21] MEDS ORDERED: LIDOCAINE TP SCH (10:00)
[2019-03-21] MEDS ORDERED: ATENOLOL PO SCH (10:00)
[2019-03-22] MEDS: NITROGLYCERIN 2% OINTMENT 1 GM PACKET TP SCH ×5 (00:22→23:50)
[2019-03-22] MEDS: BUMETANIDE INJ/PF 1 MG/4 ML SDV IV SCH ×5 (00:23→23:50)
[2019-03-22] MEDS: HEPARIN SOD (PORCINE) 5,000 UNIT/ML 1 ML VIAL SUBCUT SCH ×3 (05:58→22:23)
[2019-03-22] MEDS: INSULIN REG, HUMAN 100 UNIT/ML 3 ML VIAL (PYX) SUBCUT SCH ×4 (08:16→22:18)
[2019-03-22] MEDS: AMIODARONE HCL 200 MG TABLET PO SCH (10:02)
[2019-03-22] MEDS: AMLODIPINE BESYLATE 10 MG TABLET PO SCH (10:02)
[2019-03-22] MEDS: ATENOLOL 50 MG TABLET PO SCH (10:02)
[2019-03-22] MEDS: LIDOCAINE 5% (700 MG) TRANSDERMAL ADH..PATCH TP SCH (10:03)
[2019-03-22] MEDS: LEVOTHYROXINE SODIUM 0.1 MG TABLET PO SCH (10:03)
[2019-03-22] MEDS: ACETAMINOPHEN 325 MG TABLET PO PRN (15:26)
--- NOTE | 2019-03-22 16:09 | PDOC PROGRESS REPORT ---
Subjective Progress Note for:: 03/22/19 Subjective:: The patient is resting in bed. She is awake and alert. She is on nasal cannula. The BiPAP is at the side of the bed. Reason For Visit: ACUTE ON CHRONIC DIASTOLIC CONGESTIVE HEART FAILUR Physical Exam Vital Signs: Temp Pulse Resp BP Pulse Ox 98.2 F 94 14 134/65 H 100 03/22/19 12:02 03/22/19 12:02 03/22/19 12:02 03/22/19 12:02 03/22/19 12:02 Intake & Output 03/21/19 03/22/19 03/23/19 06:59 06:59 06:59 Intake Total 0 340 480 Output Total 1525 1750 900 Balance -1525 -1410 -420 Weight 217.7 kg General appearance: PRESENT: no acute distress, morbidly obese, well-developed Head exam: PRESENT: atraumatic, normocephalic Respiratory exam: PRESENT: clear to auscultation rachel - Bilaterally, prolonged expiratory phas, symmetrical, unlabored, other - Difficult to examine due to body habitus. ABSENT: rales, rhonchi, tachypnea, wheezes Cardiovascular exam: PRESENT: RRR, +S1, +S2 GI/Abdominal exam: PRESENT: normal bowel sounds, soft, other - Pendulous abdomen. ABSENT: tenderness Extremities exam: PRESENT: other - 3+ edema. Significantly less puffiness in the arms. Musculoskeletal exam: ABSENT: ambulatory Neurological exam: PRESENT: alert, awake, oriented to person, oriented to place, oriented to time, oriented to situation, CN II-XII grossly intact Psychiatric exam: PRESENT: anxious. ABSENT: agitated Results Laboratory Results: 03/20/19 03:06 03/21/19 06:28 03/19/19 03/20/19 03/20/19 21:23 03:06 10:15 Troponin I < 0.012 < 0.012 < 0.012 NT-Pro-B Natriuret Pep 9280 H 03/20/19 15:35 Troponin I < 0.012 NT-Pro-B Natriuret Pep Impressions: Chest X-Ray 03/19/19 20:40 IMPRESSION: Cardiomegaly. Mixed interstitial and airspace opacities copyright 2011 [employer]- All Rights Reserved Shoulder X-Ray 03/19/19 20:40 IMPRESSION: Osteopenia. Minor degenerative change copyright 2010 [employer]- All Rights Reserved Assessment and Plan - Diagnosis (1) Acute pulmonary edema with congestive heart failure Is this a current diagnosis for this admission?: Yes Plan: 03/20/2019-we will institute very aggressive diuresis. Patient requires oxygen supplementation. 03/21/2019-continue aggressive diuresis. Net negative fluid balance yesterday 1.5 L. 03/22/2019-this is the third day in a row with a net negative fluid balance. It is clinically evident especially in the patient's upper extremities. Continue current diuresis. (2) Acute on chronic diastolic congestive heart failure Is this a current diagnosis for this admission?: Yes Plan: 03/20/2019-aggressive diuretic regimen. Continue cardiac medications. 03/21/2019-continue aggressive diuresis. Goal is to continue a net negative fluid balance. 03/22/2019-continue current treatment plan (3) Acute on chronic respiratory failure with hypoxia and hypercapnia Is this a current diagnosis for this admission?: Yes Plan: 03/20/2019-BiPAP for hypercapnia. Oxygen supplementation for hypoxia. 03/21/2019-venous blood gas reveals significant improvement in PCO2. Will start trials of nasal cannula. Oxygen saturation goal is 90 to 94%. 03/22/2019-the patient has responded very well to BiPAP therapy. With her significant obesity I am confident that she has obstructive sleep apnea. We reviewed the need for a sleep study. We also discussed the need to minimize oxygen therapy and keep the oxygen saturation between 90 and 94% with patient's who have significant COPD. Continue current regimen and educate the patient further about her underlying disease. (4) Longstanding persistent atrial fibrillation Is this a current diagnosis for this admission?: Yes Plan: 03/20/2019-continue current cardiac medications. Patient is not on anticoagulation according to her home medication regimen. I will investigate further and see if there is a contraindication. 03/21/2019-by auscultation patient seems to be in a sinus rhythm at this time. 03/22/2019-good rate control. By auscultation she appears to be in sinus rhythm. (5) Hypothyroid Qualifiers: Hypothyroidism type: unspecified Qualified Code(s): E03.9 - Hypothyroidism, unspecified Is this a current diagnosis for this admission?: Yes Plan: 03/20/2019-continue levothyroxine 03/21/2019-continue levothyroxine (6) Moderate to severe pulmonary hypertension Is this a current diagnosis for this admission?: Yes Plan: 03/20/2019-multiple contributory factors including her obesity and heart disease. Continue BiPAP and try to control systemic blood pressure. 03/21/2019-try to maintain reasonable systemic blood pressure control. Utilize BiPAP at night. 03/22/2019-try to encourage the patient to undergo a sleep study and engage in the use of BiPAP at night. (7) Chronic kidney disease Qualifiers: Chronic kidney disease stage: stage 4 (severe) Qualified Code(s): N18.4 - Chronic kidney disease, stage 4 (severe) Is this a current diagnosis for this admission?: Yes Plan: 03/20/2019-hopefully with aggressive diuresis renal function will improve. Hyperkalemia is likely secondary to her kidney disease. Consider nephrology consult. The patient would be a very poor dialysis candidate. 03/21/2019-continue aggressive diuresis. No significant change in function yet. Will monitor closely. 03/22/2019-the patient is a difficult blood draw. I will try and avoid daily labs. The renal function appears to be stable despite aggressive diuresis. (8) Morbid obesity with body mass index of 70 and over in adult Is this a current diagnosis for this admission?: Yes Plan: 03/20/2019-BMI is 94.5. Certainly a negative contributing factor to many of her comorbidities. The patient would need referral to a bariatric specialty center for weight management. 03/21/2019-continue current management (9) Hypertension Qualifiers: Hypertension type: essential hypertension Qualified Code(s): I10 - Essential (primary) hypertension Is this a current diagnosis for this admission?: Yes Plan: 03/20/2019-continue current cardiac medications 03/21/2019-reasonable blood pressure control. Continue current medications. 03/22/2019-no change (10) Anemia Qualifiers: Anemia type: due to chronic kidney disease Chronic kidney disease stage: stage 4 (severe) Qualified Code(s): N18.4 - Chronic kidney disease, stage 4 (severe); D63.1 - Anemia in chronic kidney disease Is this a current diagnosis for this admission?: Yes Plan: 03/20/2019-continue to monitor during hospitalization. At this point she does not require erythropoietin analogs. 03/21/2019-hemoglobin stable. Continue to monitor. 03/22/2019-monitor hemoglobin (11) Diabetes mellitus type 2 in obese Is this a current diagnosis for this admission?: Yes Plan: 03/20/2019-discontinue metformin since her GFR is less than 30. Insulin sliding scale for now. 03/21/2019-continue current treatment regimen. Accu-Cheks are mostly between 101 and 150. 03/22/2019-excellent control. Continue current regimen. (12) Hyperkalemia Is this a current diagnosis for this admission?: Yes Plan: 03/20/2019-serum potassium was slightly elevated today. The aggressive diuresis should drop her potassium. She will likely need potassium supplementation. 03/21/2019-resolved with diuresis. Will need to monitor potassium and likely require supplementation with continue diuresis. 03/22/2019-continues to be normal. We will need to monitor closely in light of diuresis (13) Anxiety Is this a current diagnosis for this admission?: Yes Plan: 03/22/2019-after long discussion it is revealed that the patient fell several weeks ago. She does not get out of bed at home because she is afraid that she will fall. She has heightened anxiety about anything to do with being outside of the house. She also reports claustrophobia and this is why she refuses the BiPAP. - Plan Summary Summary: Patient will be admitted to a medical bed where she will receive routine supportive and symptomatic cares. She will be maintained on BiPAP as long as necessary to maintain an adequate oxygen saturation and prevent hypercapnia. Her blood gases will be monitored utilizing arterial and venous gases as needed. Her acute heart failure exacerbation with pulmonary edema will be treated with IV morphine sulfate 2 mg every hour as needed for severe dyspnea and nitroglycerin 2% ointment 1 g every 6 hours. She will be restarted on her usual home medications, as appropriate, as soon as her home medication list has gone through the reconciliation process. Aggressive therapy will most likely be required for her ongoing congestive heart failure utilizing Demadex and eliminating the use of ACEs and ARBs. Her blood pressure will be controlled utilizing hydralazine and/or metoprolol administered intravenously until her regular medications can be restarted. Daily CBCs, metabolic profiles and magnesium levels will be obtained as appropriate. A diabetic restricted, cardiac restricted and nephrologic restricted diet will be in place. Before meals and at bedtime Accu-Cheks will be performed with sliding scale regular insulin for hyperglycemia and a hypoglycemic protocol also in place. - Time Time Spent with patient: 25-34 minutes Medications reviewed and adjusted accordingly: Yes
[2019-03-23] MEDS: BUMETANIDE INJ/PF 1 MG/4 ML SDV IV SCH ×4 (05:35→23:35)
[2019-03-23] MEDS: NITROGLYCERIN 2% OINTMENT 1 GM PACKET TP SCH ×4 (05:35→23:35)
[2019-03-23] MEDS: HEPARIN SOD (PORCINE) 5,000 UNIT/ML 1 ML VIAL SUBCUT SCH ×3 (05:35→21:37)
[2019-03-23] MEDS: INSULIN REG, HUMAN 100 UNIT/ML 3 ML VIAL (PYX) SUBCUT SCH ×4 (08:13→23:36)
[2019-03-23] MEDS: AMIODARONE HCL 200 MG TABLET PO SCH (09:32)
[2019-03-23] MEDS: ATENOLOL 50 MG TABLET PO SCH (09:32)
[2019-03-23] MEDS: AMLODIPINE BESYLATE 10 MG TABLET PO SCH (09:32)
[2019-03-23] MEDS: LEVOTHYROXINE SODIUM 0.1 MG TABLET PO SCH (09:33)
[2019-03-23] MEDS ORDERED: (PENDING PHARMACY ID) (Levothyroxine Sodium [Synthroid] 300 MCG) PO SCH (10:00)
[2019-03-23] MEDS: LIDOCAINE 5% (700 MG) TRANSDERMAL ADH..PATCH TP SCH ×2 (11:33→14:25)
--- NOTE | 2019-03-23 11:55 | PDOC PROGRESS REPORT ---
Subjective Progress Note for:: 03/23/19 Subjective:: The patient is resting in bed. She has nasal cannula in place. She states she is feeling comfortable but is afraid to get out of bed. She began to get quite tearful even discussing a physical therapy consult. Reason For Visit: ACUTE ON CHRONIC DIASTOLIC CONGESTIVE HEART FAILUR Physical Exam Vital Signs: Temp Pulse Resp BP Pulse Ox 98.1 F 102 H 15 128/72 H 87 L 03/23/19 07:44 03/23/19 07:44 03/23/19 04:46 03/23/19 07:44 03/23/19 07:44 Intake & Output 03/22/19 03/23/19 03/24/19 06:59 06:59 06:59 Intake Total 340 940 Output Total 1750 2000 Balance -1410 -1060 Weight 217.7 kg 217 kg General appearance: PRESENT: cooperative, mild distress, morbidly obese, well- developed Head exam: PRESENT: atraumatic, normocephalic Respiratory exam: PRESENT: clear to auscultation rachel - Anteriorly, decreased breath sounds - Due to body habitus, symmetrical, unlabored. ABSENT: rhonchi, tachypnea, wheezes Cardiovascular exam: PRESENT: RRR, +S1, +S2 GI/Abdominal exam: PRESENT: diminished bowel sounds, soft, other - Pendulous abdomen. Difficult to auscultate.. ABSENT: tenderness Rectal exam: PRESENT: deferred Extremities exam: PRESENT: pedal edema, other - 3+ Musculoskeletal exam: ABSENT: ambulatory Neurological exam: PRESENT: alert, awake, oriented to person, oriented to place, oriented to time, oriented to situation, CN II-XII grossly intact Psychiatric exam: PRESENT: anxious - Severe. ABSENT: agitated Results Laboratory Results: 03/20/19 03:06 03/21/19 06:28 03/19/19 03/20/19 03/20/19 21:23 03:06 10:15 Troponin I < 0.012 < 0.012 < 0.012 NT-Pro-B Natriuret Pep 9280 H 03/20/19 15:35 Troponin I < 0.012 NT-Pro-B Natriuret Pep Impressions: Chest X-Ray 03/19/19 20:40 IMPRESSION: Cardiomegaly. Mixed interstitial and airspace opacities copyright 2011 [employer]- All Rights Reserved Shoulder X-Ray 03/19/19 20:40 IMPRESSION: Osteopenia. Minor degenerative change copyright 2010 [employer]- All Rights Reserved Assessment and Plan - Diagnosis (1) Acute pulmonary edema with congestive heart failure Is this a current diagnosis for this admission?: Yes Plan: 03/20/2019-we will institute very aggressive diuresis. Patient requires oxygen supplementation. 03/21/2019-continue aggressive diuresis. Net negative fluid balance yesterday 1.5 L. 03/22/2019-this is the third day in a row with a net negative fluid balance. It is clinically evident especially in the patient's upper extremities. Continue current diuresis. 03/23/2019-consider changing to a decreased dose of Bumex and converting to oral dosing in anticipation of transfer to skilled facility. 2 mg IV every 6 hours of Bumex has been effective. (2) Acute on chronic diastolic congestive heart failure Is this a current diagnosis for this admission?: Yes Plan: 03/20/2019-aggressive diuretic regimen. Continue cardiac medications. 03/21/2019-continue aggressive diuresis. Goal is to continue a net negative fluid balance. 03/22/2019-continue current treatment plan 03/23/2019-significant improvement with aggressive diuresis (3) Acute on chronic respiratory failure with hypoxia and hypercapnia Is this a current diagnosis for this admission?: Yes Plan: 03/20/2019-BiPAP for hypercapnia. Oxygen supplementation for hypoxia. 03/21/2019-venous blood gas reveals significant improvement in PCO2. Will start trials of nasal cannula. Oxygen saturation goal is 90 to 94%. 03/22/2019-the patient has responded very well to BiPAP therapy. With her significant obesity I am confident that she has obstructive sleep apnea. We reviewed the need for a sleep study. We also discussed the need to minimize oxygen therapy and keep the oxygen saturation between 90 and 94% with patient's who have significant COPD. Continue current regimen and educate the patient further about her underlying disease. 03/23/2019-the patient is resting on nasal cannula. As noted above we had a long discussion about oxygen saturations while on supplemental oxygen. We again reviewed the need for sleep study as she has an extremely high probability of having obstructive sleep apnea. (4) Longstanding persistent atrial fibrillation Is this a current diagnosis for this admission?: Yes Plan: 03/20/2019-continue current cardiac medications. Patient is not on anticoagulation according to her home medication regimen. I will investigate f pipe and see if there is a contraindication. 03/21/2019-by auscultation patient seems to be in a sinus rhythm at this time. 03/22/2019-good rate control. By auscultation she appears to be in sinus rhythm. 03/23/2019-she continues to have occasional elevations in heart rate. Consider changing the atenolol to metoprolol or carvedilol and adjusting the dose. (5) Hypothyroid Qualifiers: Hypothyroidism type: unspecified Qualified Code(s): E03.9 - Hypothyroidism, unspecified Is this a current diagnosis for this admission?: Yes Plan: 03/20/2019-continue levothyroxine 03/21/2019-continue levothyroxine (6) Moderate to severe pulmonary hypertension Is this a current diagnosis for this admission?: Yes Plan: 03/20/2019-multiple contributory factors including her obesity and heart disease. Continue BiPAP and try to control systemic blood pressure. 03/21/2019-try to maintain reasonable systemic blood pressure control. Utilize BiPAP at night. 03/22/2019-try to encourage the patient to undergo a sleep study and engage in the use of BiPAP at night. 03/23/2019-the patient should wear BiPAP. At this point I do not believe her severe pulmonary hypertension is reversible but certainly might be improved with aggressive management. Consider evaluation by a specialist. (7) Chronic kidney disease Qualifiers: Chronic kidney disease stage: stage 4 (severe) Qualified Code(s): N18.4 - Chronic kidney disease, stage 4 (severe) Is this a current diagnosis for this admission?: Yes Plan: 03/20/2019-hopefully with aggressive diuresis renal function will improve. Hyperkalemia is likely secondary to her kidney disease. Consider nephrology consult. The patient would be a very poor dialysis candidate. 03/21/2019-continue aggressive diuresis. No significant change in function yet. Will monitor closely. 03/22/2019-the patient is a difficult blood draw. I will try and avoid daily labs. The renal function appears to be stable despite aggressive diuresis. 03/23/2019-I am checking serum chemistries every several days of the patient is extremely hard to draw blood from. Decreasing the Bumex dosing will not likely make a difference because of the severity and chronicity of her kidney disease. There may be a slight improvement but overall it is unchanged. (8) Morbid obesity with body mass index of 70 and over in adult Is this a current diagnosis for this admission?: Yes Plan: 03/20/2019-BMI is 94.5. Certainly a negative contributing factor to many of her comorbidities. The patient would need referral to a bariatric specialty center for weight management. 03/21/2019-continue current management (9) Hypertension Qualifiers: Hypertension type: essential hypertension Qualified Code(s): I10 - Essential (primary) hypertension Is this a current diagnosis for this admission?: Yes Plan: 03/20/2019-continue current cardiac medications 03/21/2019-reasonable blood pressure control. Continue current medications. 03/22/2019-no change 03/23/2019-reasonable blood pressure control. No changes at this time. (10) Anemia Qualifiers: Anemia type: due to chronic kidney disease Chronic kidney disease stage: stage 4 (severe) Qualified Code(s): N18.4 - Chronic kidney disease, stage 4 (severe); D63.1 - Anemia in chronic kidney disease Is this a current diagnosis for this admission?: Yes Plan: 03/20/2019-continue to monitor during hospitalization. At this point she does not require erythropoietin analogs. 03/21/2019-hemoglobin stable. Continue to monitor. 03/22/2019-monitor hemoglobin (11) Diabetes mellitus type 2 in obese Is this a current diagnosis for this admission?: Yes Plan: 03/20/2019-discontinue metformin since her GFR is less than 30. Insulin sliding scale for now. 03/21/2019-continue current treatment regimen. Accu-Cheks are mostly between 101 and 150. 03/22/2019-excellent control. Continue current regimen. 03/23/2019-no adjustment necessary (12) Hyperkalemia Is this a current diagnosis for this admission?: Yes Plan: 03/20/2019-serum potassium was slightly elevated today. The aggressive diuresis should drop her potassium. She will likely need potassium supplementation. 03/21/2019-resolved with diuresis. Will need to monitor potassium and likely require supplementation with continue diuresis. 03/22/2019-continues to be normal. We will need to monitor closely in light of diuresis 03/23/2019-most recent serum potassium was normal. Continue to monitor. (13) Anxiety Is this a current diagnosis for this admission?: Yes Plan: 03/22/2019-after long discussion it is revealed that the patient fell several weeks ago. She does not get out of bed at home because she is afraid that she will fall. She has heightened anxiety about anything to do with being outside of the house. She also reports claustrophobia and this is why she refuses the BiPAP. 03/23/2019-psychiatry did see the patient today. They agreed with initiating BuSpar therapy. Behavioral therapy was initiated and the patient seem to be responding. It will certainly take some time with consistent therapy to resolve this issue. Medications will provide some relief but the primary focus should be on psychotherapy. - Plan Summary Summary: Patient will be admitted to a medical bed where she will receive routine supportive and symptomatic cares. She will be maintained on BiPAP as long as necessary to maintain an adequate oxygen saturation and prevent hypercapnia. Her blood gases will be monitored utilizing arterial and venous gases as needed. Her acute heart failure exacerbation with pulmonary edema will be treated with IV morphine sulfate 2 mg every hour as needed for severe dyspnea and nitroglycerin 2% ointment 1 g every 6 hours. She will be restarted on her usual home medications, as appropriate, as soon as her home medication list has gone through the reconciliation process. Aggressive therapy will most likely be required for her ongoing congestive heart failure utilizing Demadex and eliminating the use of ACEs and ARBs. Her blood pressure will be controlled utilizing hydralazine and/or metoprolol administered intravenously until her regular medications can be restarted. Daily CBCs, metabolic profiles and magnesium levels will be obtained as appropriate. A diabetic restricted, cardiac restricted and nephrologic restricted diet will be in place. Before meals and at bedtime Accu-Cheks will be performed with sliding scale regular in sulin for hyperglycemia and a hypoglycemic protocol also in place. - Time Time Spent with patient: Less than 15 minutes Medications reviewed and adjusted accordingly: Yes Anticipated discharge: SNF
[2019-03-23] MEDS: BUSPIRONE HCL 10 MG TABLET PO SCH (21:37)
[2019-03-24] MEDS: NITROGLYCERIN 2% OINTMENT 1 GM PACKET TP SCH ×4 (05:31→23:37)
[2019-03-24] MEDS: BUMETANIDE INJ/PF 1 MG/4 ML SDV IV SCH ×3 (05:31→17:38)
[2019-03-24] MEDS: HEPARIN SOD (PORCINE) 5,000 UNIT/ML 1 ML VIAL SUBCUT SCH ×4 (05:31→21:54)
--- NOTE | 2019-03-24 09:01 | EKG REPORT ---
SEVERITY:- ABNORMAL ECG - ATRIAL FIBRILLATION NONSPECIFIC INTRAVENTRICULAR CONDUCTION DELAY BORDERLINE ST DEPRESSION, LATERAL LEADS : Confirmed on behalf of: Arianna Stauffer MD 24-Mar-2019 09:00:31
[2019-03-24] MEDS: INSULIN REG, HUMAN 100 UNIT/ML 3 ML VIAL (PYX) SUBCUT SCH ×4 (09:39→22:13)
[2019-03-24] MEDS: ACETAMINOPHEN 325 MG TABLET PO PRN ×2 (09:50→17:38)
[2019-03-24] MEDS: ATENOLOL 50 MG TABLET PO SCH (09:50)
[2019-03-24] MEDS: BUSPIRONE HCL 10 MG TABLET PO SCH ×2 (09:51→21:51)
[2019-03-24] MEDS: AMLODIPINE BESYLATE 10 MG TABLET PO SCH (09:51)
[2019-03-24] MEDS: LIDOCAINE 5% (700 MG) TRANSDERMAL ADH..PATCH TP SCH (09:51)
[2019-03-24] MEDS: AMIODARONE HCL 200 MG TABLET PO SCH (09:51)
[2019-03-24] MEDS: CALCITRIOL 0.25 MCG CAPSULE PO SCH (09:51)
[2019-03-24] MEDS: LEVOTHYROXINE SODIUM 0.1 MG TABLET PO SCH (09:51)
--- NOTE | 2019-03-24 10:12 | PSYCHOLOGICAL NOTE ---
Psych Note - Psych Note Date seen by psych provider: 03/23/19 Time seen by psych provider: 14:00 - [id number] Psych Note: Reason for Consult: Anxiety Patient reports she has fallen 2 times this month and now is experiencing extreme anxiety and now demonstrating a phobia was standing, walking, and even looking at the floor. Clinician conducted therapeutic intervention of controlled, deep breathing, and visualizing compressing physical feelings stemming from her anxiety. Patient did very well and demonstrates wanting to improve and to overcome her fears. Clinician was able to assist the patient in her anxiety while being transferred to a new bed; she did very well using her deep breathing. Patient is still unable to look at the floor after engaging in therapy. Patient is requested to continue working on controlled, deep breathing, and visualizing compressing physical feelings stemming from her anxiety. Patient is asked to visually feeling the floor at her feet as the next step. She is recommended to continue outpatient mental health services to continue working on her anxiety and phobias. Medication recommendations per [facility]'s contracted psychiatrist Dr Brian ONTIVEROS are as follows: Buspar 10mg twice daily Patient is cleared from acute psychiatric services.
--- NOTE | 2019-03-24 18:52 | PDOC PROGRESS REPORT ---
Subjective Progress Note for:: 03/24/19 Subjective:: Patient is currently stable. Complains of back pain and heel pain due to the position in bed at the time of our encounter. Denies any significant shortness of breath at the moment. Reason For Visit: ACUTE ON CHRONIC DIASTOLIC CONGESTIVE HEART FAILUR Physical Exam Vital Signs: Temp Pulse Resp BP Pulse Ox 97.8 F 103 H 19 124/63 96 03/24/19 17:11 03/24/19 17:11 03/24/19 17:11 03/24/19 17:11 03/24/19 17:11 Intake & Output 03/23/19 03/24/19 03/25/19 06:59 06:59 06:59 Intake Total 940 1160 836 Output Total 1999 3000 2150 Balance -1060 -1840 -1314 Weight 217 kg 215 kg General appearance: PRESENT: no acute distress, cooperative Neck exam: ABSENT: JVD - Hard to appreciate given body habitus Respiratory exam: PRESENT: clear to auscultation rachel, symmetrical, unlabored. ABSENT: tachypnea, wheezes Cardiovascular exam: PRESENT: RRR, +S1, +S2. ABSENT: tachycardia GI/Abdominal exam: PRESENT: normal bowel sounds, soft. ABSENT: rebound, rigid, tenderness Neurological exam: PRESENT: alert, awake, oriented to person, oriented to place, oriented to time Results Laboratory Results: 03/20/19 03:06 03/21/19 06:28 03/19/19 22:55 Blood Blood Culture (PCR) - Final Staphylococcus Species 03/19/19 03/20/19 03/20/19 21:23 03:06 10:15 Troponin I < 0.012 < 0.012 < 0.012 NT-Pro-B Natriuret Pep 9280 H 03/20/19 15:35 Troponin I < 0.012 NT-Pro-B Natriuret Pep Impressions: Chest X-Ray 03/19/19 20:40 IMPRESSION: Cardiomegaly. Mixed interstitial and airspace opacities copyright 2010 [employer]- All Rights Reserved Shoulder X-Ray 03/19/19 20:40 IMPRESSION: Osteopenia. Minor degenerative change copyright 2010 [employer]- All Rights Reserved Assessment and Plan - Diagnosis (1) Acute on chronic diastolic congestive heart failure Is this a current diagnosis for this admission?: Yes Plan: 03/20/2019-aggressive diuretic regimen. Continue cardiac medications. 03/21/2019-continue aggressive diuresis. Goal is to continue a net negative fluid balance. 03/22/2019-continue current treatment plan 03/23/2019-significant improvement with aggressive diuresis 03/24/2019-patient has diuresed very nicely over the past several days on Bumex 2 mg IV every 6 hours. I will hold Bumex as of now and recheck metabolic panel and restart Bumex at oral dose if creatinine is stable or improved. (2) Acute on chronic respiratory failure with hypoxia and hypercapnia Is this a current diagnosis for this admission?: Yes Plan: 03/20/2019-BiPAP for hypercapnia. Oxygen supplementation for hypoxia. 03/21/2019-venous blood gas reveals significant improvement in PCO2. Will start trials of nasal cannula. Oxygen saturation goal is 90 to 94%. 03/22/2019-the patient has responded very well to BiPAP therapy. With her significant obesity I am confident that she has obstructive sleep apnea. We reviewed the need for a sleep study. We also discussed the need to minimize oxygen therapy and keep the oxygen saturation between 90 and 94% with patient's who have significant COPD. Continue current regimen and educate the patient further about her underlying disease. 03/23/2019-the patient is resting on nasal cannula. As noted above we had a long discussion about oxygen saturations while on supplemental oxygen. We again reviewed the need for sleep study as she has an extremely high probability of having obstructive sleep apnea. 03/24/2019 oxygen supplementation via nasal cannula. Patient likely does have obesity hypoventilation syndrome given her weight and hypercarbic hypoxic respiratory failure. Patient will certainly benefit from nocturnal BiPAP I believe but will likely need a sleep study to qualify for this. In the meantime we will continue with oxygen supplementation. (3) Anxiety Is this a current diagnosis for this admission?: Yes Plan: 03/22/2019-after long discussion it is revealed that the patient fell several weeks ago. She does not get out of bed at home because she is afraid that she will fall. She has heightened anxiety about anything to do with being outside of the house. She also reports claustrophobia and this is why she refuses the BiPAP. 03/23/2019-psychiatry did see the patient today. They agreed with initiating BuSpar therapy. Behavioral therapy was initiated and the patient seem to be r esponding. It will certainly take some time with consistent therapy to resolve this issue. Medications will provide some relief but the primary focus should be on psychotherapy. (4) Diabetes mellitus type 2 in obese Is this a current diagnosis for this admission?: Yes Plan: 03/20/2019-discontinue metformin since her GFR is less than 30. Insulin sliding scale for now. 03/21/2019-continue current treatment regimen. Accu-Cheks are mostly between 101 and 150. 03/22/2019-excellent control. Continue current regimen. 03/23/2019-no adjustment necessary (5) Longstanding persistent atrial fibrillation Is this a current diagnosis for this admission?: Yes Plan: 03/20/2019-continue current cardiac medications. Patient is not on anticoagulation according to her home medication regimen. I will investigate further and see if there is a contraindication. 03/21/2019-by auscultation patient seems to be in a sinus rhythm at this time. 03/22/2019-good rate control. By auscultation she appears to be in sinus rhythm. 03/23/2019-she continues to have occasional elevations in heart rate. Consider changing the atenolol to metoprolol or carvedilol and adjusting the dose. 03/24/2019-sinus rhythm on telemetry with heart rates in the 90s to low 100s which is not unexpected given her morbid obesity (6) Moderate to severe pulmonary hypertension Is this a current diagnosis for this admission?: Yes Plan: patient had TTE on 03/03/2019 which showed RVSP of 58 to 63 mmHg, EF of 65%, mild to moderate mitral valve calcification with no evidence of regurgitation or stenosis, mild AV stenosis. The exact type of her pulmonary hypertension is uncertain as patient has never had a right heart catheterization. Potential causes include left heart failure or type III pulmonary hypertension from either undiagnosed SAMI/OHS. Ultimately, I do agree the patient will benefit from nocturnal BiPAP which we will try to qualify patient for if possible. Otherwise patient will have to continue with nocturnal oxygen and follow-up outpatient for polysomnography. (7) Morbid obesity with body mass index of 70 and over in adult Is this a current diagnosis for this admission?: Yes Plan: BMI is 94.5. Certainly a negative contributing factor to many of her comorbidities. The patient would need referral to a bariatric specialty center for weight management. - Time Time Spent with patient: 15-24 minutes
[2019-03-25] MEDS: HEPARIN SOD (PORCINE) 5,000 UNIT/ML 1 ML VIAL SUBCUT SCH ×3 (05:07→21:35)
[2019-03-25] MEDS: NITROGLYCERIN 2% OINTMENT 1 GM PACKET TP SCH ×3 (05:10→17:29)
[2019-03-25 06:46] LABS: ANION GAP 6 (5-19); BLOOD UREA NITROGEN 70 mg/dL (7-20); CALCIUM 8.3 mg/dL (8.4-10.2); CARBON DIOXIDE 39 mmol/L (22-30); CHLORIDE 98 mmol/L (98-107); GLUCOSE 81 mg/dL (75-110); POTASSIUM 3.9 mmol/L (3.6-5.0)
[2019-03-25] MEDS: INSULIN REG, HUMAN 100 UNIT/ML 3 ML VIAL (PYX) SUBCUT SCH ×4 (08:40→21:36)
[2019-03-25] MEDS: ATENOLOL 50 MG TABLET PO SCH (09:05)
[2019-03-25] MEDS: ACETAMINOPHEN 325 MG TABLET PO PRN ×2 (09:05→20:28)
[2019-03-25] MEDS: BUSPIRONE HCL 10 MG TABLET PO SCH ×2 (09:06→21:48)
[2019-03-25] MEDS: AMLODIPINE BESYLATE 10 MG TABLET PO SCH (09:06)
[2019-03-25] MEDS: AMIODARONE HCL 200 MG TABLET PO SCH (09:06)
[2019-03-25] MEDS: LIDOCAINE 5% (700 MG) TRANSDERMAL ADH..PATCH TP SCH ×2 (11:15→16:43)
[2019-03-25] MEDS: LEVOTHYROXINE SODIUM 0.1 MG TABLET PO SCH (11:40)
--- NOTE | 2019-03-25 18:41 | PDOC PROGRESS REPORT ---
Subjective Progress Note for:: 03/25/19 Subjective:: Patient complains of some back pain. Patient also complains of some leg pain as well. Denies any shortness of breath at the time of my encounter. Reason For Visit: ACUTE ON CHRONIC DIASTOLIC CONGESTIVE HEART FAILUR Physical Exam Vital Signs: Temp Pulse Resp BP Pulse Ox 98.0 F 105 H 16 136/67 H 98 03/25/19 07:56 03/25/19 14:00 03/25/19 07:56 03/25/19 07:56 03/25/19 07:56 Intake & Output 03/24/19 03/25/19 03/26/19 06:59 06:59 06:59 Intake Total 1160 836 720 Output Total 3000 4700 0 Balance -1840 -3864 720 Weight 215 kg 218 kg General appearance: PRESENT: cooperative, morbidly obese Neck exam: ABSENT: JVD Respiratory exam: PRESENT: clear to auscultation rachel, symmetrical, unlabored. ABSENT: tachypnea, wheezes Cardiovascular exam: PRESENT: RRR, +S1, +S2, tachycardia GI/Abdominal exam: PRESENT: normal bowel sounds, soft. ABSENT: rebound, rigid, tenderness Neurological exam: PRESENT: alert, awake, oriented to person, oriented to place, oriented to time, oriented to situation Results Laboratory Results: 03/20/19 03:06 03/25/19 05:47 03/25/19 05:47 Sodium 143.4 Potassium 3.9 Chloride 98 Carbon Dioxide 39 H Anion Gap 6 BUN 70 H Creatinine 2.53 H Est GFR ( Amer) 24 L Glucose 81 Calcium 8.3 L Magnesium 1.9 03/19/19 22:55 Blood Blood Culture (PCR) - Final Staphylococcus Species 03/19/19 22:10 Blood Blood Culture - Final NO GROWTH IN 5 DAYS 03/19/19 03/20/19 03/20/19 21:23 03:06 10:15 Troponin I < 0.012 < 0.012 < 0.012 NT-Pro-B Natriuret Pep 9280 H 03/20/19 15:35 Troponin I < 0.012 NT-Pro-B Natriuret Pep Impressions: Chest X-Ray 03/19/19 20:40 IMPRESSION: Cardiomegaly. Mixed interstitial and airspace opacities copyright 2011 [employer]- All Rights Reserved Shoulder X-Ray 03/19/19 20:40 IMPRESSION: Osteopenia. Minor degenerative change copyright 2010 [employer]- All Rights Reserved Assessment and Plan - Diagnosis (1) Acute on chronic diastolic congestive heart failure Is this a current diagnosis for this admission?: Yes Plan: 03/20/2019-aggressive diuretic regimen. Continue cardiac medications. 03/21/2019-continue aggressive diuresis. Goal is to continue a net negative fluid balance. 03/22/2019-continue current treatment plan 03/23/2019-significant improvement with aggressive diuresis 03/24/2019-patient has diuresed very nicely over the past several days on Bumex 2 mg IV every 6 hours. I will hold Bumex as of now and recheck metabolic panel and restart Bumex at oral dose if creatinine is stable or improved. 03/25/2019-started patient on p.o. Bumex 2 mg twice daily. Continue to monitor creatinine. (2) Acute on chronic respiratory failure with hypoxia and hypercapnia Is this a current diagnosis for this admission?: Yes Plan: 03/20/2019-BiPAP for hypercapnia. Oxygen supplementation for hypoxia. 03/21/2019-venous blood gas reveals significant improvement in PCO2. Will start trials of nasal cannula. Oxygen saturation goal is 90 to 94%. 03/22/2019-the patient has responded very well to BiPAP therapy. With her significant obesity I am confident that she has obstructive sleep apnea. We reviewed the need for a sleep study. We also discussed the need to minimize oxygen therapy and keep the oxygen saturation between 90 and 94% with patient's who have significant COPD. Continue current regimen and educate the patient further about her underlying disease. 03/23/2019-the patient is resting on nasal cannula. As noted above we had a long discussion about oxygen saturations while on supplemental oxygen. We again reviewed the need for sleep study as she has an extremely high probability of having obstructive sleep apnea. 03/24/2019 oxygen supplementation via nasal cannula. Patient likely does have obesity hypoventilation syndrome given her weight and hypercarbic hypoxic respiratory failure. Patient will certainly benefit from nocturnal BiPAP I believe but will likely need a sleep study to qualify for this. In the meantime we will continue with oxygen supplementation. 03/25/2019-continue BiPAP for hypercarbic respiratory failure likely from obesity hypoventilation syndrome. (3) Anxiety Is this a current diagnosis for this admission?: Yes Plan: 03/22/2019-after long discussion it is revealed that the patient fell several weeks ago. She does not get out of bed at home because she is afraid that she will fall. She has heightened anxiety about anything to do with being outside of the house. She also reports claustrophobia and this is why she refuses the BiPAP. 03/23/2019-psychiatry did see the patient today. They agreed with initiating BuSpar therapy. Behavioral therapy was initiated and the patient seem to be responding. It will certainly take some time with consistent therapy to resolve this issue. Medications will provide some relief but the primary focus should be on psychotherapy. Continue buspirone (4) Diabetes mellitus type 2 in obese Is this a current diagnosis for this admission?: Yes Plan: 03/20/2019-discontinue metformin since her GFR is less than 30. Insulin sliding scale for now. 03/21/2019-continue current treatment regimen. Accu-Cheks are mostly between 101 and 150. 03/22/2019-excellent control. Continue current regimen. 03/23/2019-no adjustment necessary (5) Longstanding persistent atrial fibrillation Is this a current diagnosis for this admission?: Yes Plan: 03/20/2019-continue current cardiac medications. Patient is not on anticoagulation according to her home medication regimen. I will investigate further and see if there is a contraindication. 03/21/2019-by auscultation patient seems to be in a sinus rhythm at this time. 03/22/2019-good rate control. By auscultation she appears to be in sinus rhythm. 03/23/2019-she continues to have occasional elevations in heart rate. Consider changing the atenolol to metoprolol or carvedilol and adjusting the dose. 03/24/2019-sinus rhythm on telemetry with heart rates in the 90s to low 100s which is not unexpected given her morbid obesity 03/25/2019-patient is currently in junctional rhythm occasionally junctional tachycardia. This is not all that dissimilar from prior EKGs. We will continue patient beta-stevie, amiodarone and Eliquis at this time given documented prior history of A. fib. (6) Moderate to severe pulmonary hypertension Is this a current diagnosis for this admission?: Yes Plan: patient had TTE on 03/03/2019 which showed RVSP of 58 to 63 mmHg, EF of 65%, mild to moderate mitral valve calcification with no evidence of regurgitation or stenosis, mild AV stenosis. The exact type of her pulmonary hypertension is uncertain as patient has never had a right heart catheterization. Potential causes include left heart failure or type III pulmonary hypertension from either undiagnosed SAMI/OHS. Ultimately, I do agree the patient will benefit from nocturnal BiPAP which we will try to qualify patient for if possible. Otherwise patient will have to continue with nocturnal oxygen and follow-up outpatient for polysomnography. (7) Morbid obesity with body mass index of 70 and over in adult Is this a current diagnosis for this admission?: Yes Plan: BMI is 94.5. Certainly a negative contributing factor to many of her comorbidities. The patient would need referral to a bariatric specialty center for weight management. - Time Time Spent with patient: 15-24 minutes
--- NOTE | 2019-03-25 19:16 | EKG REPORT ---
SEVERITY:- ABNORMAL ECG - JUNCTIONAL TACHYCARDIA ABNORMAL T, CONSIDER ISCHEMIA, LATERAL LEADS : Confirmed by: Jack Brody MD 25-Mar-2019 19:15:54
[2019-03-25] MEDS: BUMETANIDE 1 MG TABLET PO SCH (20:26)
[2019-03-26] MEDS: NITROGLYCERIN 2% OINTMENT 1 GM PACKET TP SCH ×4 (00:12→17:26)
[2019-03-26] MEDS: HEPARIN SOD (PORCINE) 5,000 UNIT/ML 1 ML VIAL SUBCUT SCH ×3 (05:37→22:36)
[2019-03-26 06:33] LABS: BLOOD UREA NITROGEN 70 mg/dL (7-20); CALCIUM 8.5 mg/dL (8.4-10.2); CHLORIDE 94 mmol/L (98-107); GLUCOSE 86 mg/dL (75-110); POTASSIUM 3.8 mmol/L (3.6-5.0)
[2019-03-26 06:40] LABS: ANION GAP 10 (5-19)
[2019-03-26 06:41] LABS: HEMATOCRIT 32.3 % (36.0-47.0); HEMOGLOBIN 10.2 g/dL (12.0-15.5); MEAN CORPUSCULAR HEMOGLOBIN 26.8 pg (27.0-33.4); MEAN CORPUSCULAR HGB CONC 31.6 g/dL (32.0-36.0); MEAN CORPUSCULAR VOLUME 85 fl (80-97); PLATELET COUNT 109 10^3/uL (150-450); RED BLOOD COUNT 3.81 10^6/uL (3.72-5.28); RED CELL DISTRIBUTION WIDTH 25.2 % (11.5-14.0); WHITE BLOOD COUNT 4.3 10^3/uL (4.0-10.5)
[2019-03-26 06:44] LABS: CARBON DIOXIDE 38 mmol/L (22-30)
[2019-03-26] MEDS: CALCITRIOL 0.25 MCG CAPSULE PO SCH (08:19)
[2019-03-26] MEDS: INSULIN REG, HUMAN 100 UNIT/ML 3 ML VIAL (PYX) SUBCUT SCH ×4 (08:20→22:35)
[2019-03-26] MEDS: ATENOLOL 50 MG TABLET PO SCH (10:00)
[2019-03-26] MEDS: TRAMADOL HCL 50 MG TABLET PO PRN (10:00)
[2019-03-26] MEDS: AMLODIPINE BESYLATE 10 MG TABLET PO SCH (10:01)
[2019-03-26] MEDS: BUSPIRONE HCL 10 MG TABLET PO SCH ×2 (10:01→22:34)
[2019-03-26] MEDS: BUMETANIDE 1 MG TABLET PO SCH ×2 (10:01→17:26)
[2019-03-26] MEDS: AMIODARONE HCL 200 MG TABLET PO SCH (10:01)
[2019-03-26] MEDS: LIDOCAINE 5% (700 MG) TRANSDERMAL ADH..PATCH TP SCH (10:03)
[2019-03-26] MEDS: LEVOTHYROXINE SODIUM 0.1 MG TABLET PO SCH (10:15)
[2019-03-26] MEDS ORDERED: BISACODYL 5 MG TABEC PO ONE (13:30)
[2019-03-26] MEDS ORDERED: POLYETHYLENE GLYCOL 3350 POWDER 17 GM/1 PACKET PO ONE (13:30)
--- NOTE | 2019-03-26 14:39 | PDOC PROGRESS REPORT ---
Subjective Progress Note for:: 03/26/19 Subjective:: Patient complains of back pain still which is improved. Has not required much pain meds for the back pain will just try some repositioning. Also complains of constipation. Reason For Visit: ACUTE ON CHRONIC DIASTOLIC CONGESTIVE HEART FAILUR Physical Exam Vital Signs: Temp Pulse Resp BP Pulse Ox 98.3 F 106 H 20 134/56 H 97 03/26/19 11:21 03/26/19 11:21 03/26/19 11:21 03/26/19 11:21 03/26/19 11:21 Intake & Output 03/25/19 03/26/19 03/27/19 06:59 06:59 06:59 Intake Total 836 1480 537 Output Total 4700 3275 800 Balance -8034 -1795 -328 Weight 218 kg 225.1 kg General appearance: PRESENT: no acute distress, cooperative, morbidly obese Neck exam: ABSENT: JVD Respiratory exam: PRESENT: clear to auscultation rachel, symmetrical, unlabored. ABSENT: tachypnea, wheezes Cardiovascular exam: PRESENT: +S1, +S2, tachycardia. ABSENT: irregular rhythm GI/Abdominal exam: PRESENT: normal bowel sounds, soft. ABSENT: rebound, rigid, tenderness Neurological exam: PRESENT: alert, awake Results Laboratory Results: 03/26/19 06:00 03/26/19 06:00 03/26/19 03/26/19 06:00 06:00 WBC 4.3 RBC 3.81 Hgb 10.2 L Hct 32.3 L MCV 85 MCH 26.8 L MCHC 31.6 L RDW 25.2 H Plt Count 109 L Sodium 141.7 Potassium 3.8 Chloride 94 L Carbon Dioxide 38 H Anion Gap 10 BUN 70 H Creatinine 2.36 H Est GFR ( Amer) 26 L Glucose 86 Calcium 8.5 03/19/19 22:55 Blood Blood Culture (PCR) - Final Staphylococcus Species 03/19/19 03/20/19 03/20/19 21:23 03:06 10:15 Troponin I < 0.012 < 0.012 < 0.012 NT-Pro-B Natriuret Pep 9280 H 03/20/19 15:35 Troponin I < 0.012 NT-Pro-B Natriuret Pep Impressions: Chest X-Ray 03/19/19 20:40 IMPRESSION: Cardiomegaly. Mixed interstitial and airspace opacities copyright 2010 [employer]- All Rights Reserved Shoulder X-Ray 03/19/19 20:40 IMPRESSION: Osteopenia. Minor degenerative change copyright 2010 [employer]- All Rights Reserved Assessment and Plan - Diagnosis (1) Acute on chronic diastolic congestive heart failure Is this a current diagnosis for this admission?: Yes Plan: 03/20/2019-aggressive diuretic regimen. Continue cardiac medications. 03/21/2019-continue aggressive diuresis. Goal is to continue a net negative fluid balance. 03/22/2019-continue current treatment plan 03/23/2019-significant improvement with aggressive diuresis 03/24/2019-patient has diuresed very nicely over the past several days on Bumex 2 mg IV every 6 hours. I will hold Bumex as of now and recheck metabolic panel and restart Bumex at oral dose if creatinine is stable or improved. 03/25/2019-started patient on p.o. Bumex 2 mg twice daily. Continue to monitor creatinine. 03/26/2019-patient has been diuresing quite a bit from yesterday. Creatinine continues to improve as well. However bicarb is notably high. Given the improvement in creatinine, I will continue Bumex 2 mg twice a day for today and consider changing tomorrow to daily. I will check a VBG tomorrow morning to see if bicarb elevation is from metabolic compensation for respiratory acidosis versus contraction alkalosis. (2) Acute on chronic respiratory failure with hypoxia and hypercapnia Is this a current diagnosis for this admission?: Yes Plan: 03/20/2019-BiPAP for hypercapnia. Oxygen supplementation for hypoxia. 03/21/2019-venous blood gas reveals significant improvement in PCO2. Will start trials of nasal cannula. Oxygen saturation goal is 90 to 94%. 03/22/2019-the patient has responded very well to BiPAP therapy. With her significant obesity I am confident that she has obstructive sleep apnea. We reviewed the need for a sleep study. We also discussed the need to minimize oxygen therapy and keep the oxygen saturation between 90 and 94% with patient's who have significant COPD. Continue current regimen and educate the patient further about her underlying disease. 03/23/2019-the patient is resting on nasal cannula. As noted above we had a long discussion about oxygen saturations while on supplemental oxygen. We again reviewed the need for sleep study as she has an extremely high probability of having obstructive sleep apnea. 03/24/2019 oxygen supplementation via nasal cannula. Patient likely does have obesity hypoventilation syndrome given her weight and hypercarbic hypoxic respiratory failure. Patient will certainly benefit from nocturnal BiPAP I believe but will likely need a sleep study to qualify for this. In the meantime we will continue with oxygen supplementation. 03/25/2019-continue BiPAP for hypercarbic respiratory failure likely from obesity hypoventilation syndrome. (3) Anxiety Is this a current diagnosis for this admission?: Yes Plan: Continue buspirone. Patient will benefit from long-term counseling as well. (4) Diabetes mellitus type 2 in obese Is this a current diagnosis for this admission?: Yes Plan: 03/20/2019-discontinue metformin since her GFR is less than 30. Insulin sliding scale for now. 03/21/2019-continue current treatment regimen. Accu-Cheks are mostly between 101 and 150. 03/22/2019-excellent control. Continue current regimen. 03/23/2019-no adjustment necessary (5) Longstanding persistent atrial fibrillation Is this a current diagnosis for this admission?: Yes Plan: 03/20/2019-continue current cardiac medications. Patient is not on anticoagulation according to her home medication regimen. I will investigate further and see if there is a contraindication. 03/21/2019-by auscultation patient seems to be in a sinus rhythm at this time. 03/22/2019-good rate control. By auscultation she appears to be in sinus rhythm. 03/23/2019-she continues to have occasional elevations in heart rate. Consider changing the atenolol to metoprolol or carvedilol and adjusting the dose. 03/24/2019-sinus rhythm on telemetry with heart rates in the 90s to low 100s which is not unexpected given her morbid obesity 03/25/2019-patient is currently in junctional rhythm occasionally junctional tachycardia. This is not all that dissimilar from prior EKGs. We will continue patient beta-stevie, amiodarone and Eliquis at this time given documented prior history of A. fib 03/26/2019-patient still in junctional rhythm. Rate is still in the low 100-105. I will change atenolol to metoprolol tartrate. (6) Moderate to severe pulmonary hypertension Is this a current diagnosis for this admission?: Yes Plan: patient had TTE on 03/03/2019 which showed RVSP of 58 to 63 mmHg, EF of 65%, mild to moderate mitral valve calcification with no evidence of regurgitation or stenosis, mild AV stenosis. The exact type of her pulmonary hypertension is uncertain as patient has never had a right heart catheterization. Potential causes include left heart failure or type III pulmonary hypertension from either undiagnosed SAMI/OHS. Ultimately, I do agree the patient will benefit from nocturnal BiPAP which we will try to qualify patient for if possible. Otherwise patient will have to continue with nocturnal oxygen and follow-up outpatient for polysomnography. (7) Morbid obesity with body mass index of 70 and over in adult Is this a current diagnosis for this admission?: Yes Plan: BMI is 94.5. Certainly a negative contributing factor to many of her comorbidities. The patient would need referral to a bariatric specialty center for weight management. (8) Constipation Qualifiers: Constipation type: unspecified constipation type Qualified Code(s): K59.00 - Constipation, unspecified Is this a current diagnosis for this admission?: Yes Plan: Received Dulcolax and started on MiraLAX - Time Time Spent with patient: 15-24 minutes
[2019-03-26] MEDS ORDERED: METOPROLOL TARTRATE 50 MG TABLET PO SCH (22:00)
[2019-03-27] MEDS: NITROGLYCERIN 2% OINTMENT 1 GM PACKET TP SCH ×4 (05:18→17:12)
[2019-03-27] MEDS: HEPARIN SOD (PORCINE) 5,000 UNIT/ML 1 ML VIAL SUBCUT SCH ×3 (05:18→21:03)
[2019-03-27 06:07] LABS: VENOUS BLOOD BASE EXCESS 15.1 mmol/L; VENOUS BLOOD HCO3 41.3 mmol/L (20-32); VENOUS BLOOD PCO2 59.6 mmHg (35-63); VENOUS BLOOD PH 7.46 (7.30-7.42)
[2019-03-27 06:19] LABS: BLOOD UREA NITROGEN 71 mg/dL (7-20); CALCIUM 8.6 mg/dL (8.4-10.2); CHLORIDE 93 mmol/L (98-107); GLUCOSE 80 mg/dL (75-110)
[2019-03-27 06:27] LABS: ANION GAP 9 (5-19)
[2019-03-27 06:32] LABS: CARBON DIOXIDE 40 mmol/L (22-30)
[2019-03-27] MEDS: INSULIN REG, HUMAN 100 UNIT/ML 3 ML VIAL (PYX) SUBCUT SCH ×4 (08:11→21:33)
[2019-03-27] MEDS: TRAMADOL HCL 50 MG TABLET PO PRN ×2 (08:14→20:37)
[2019-03-27] MEDS: LIDOCAINE 5% (700 MG) TRANSDERMAL ADH..PATCH TP SCH (09:44)
[2019-03-27] MEDS: METOPROLOL TARTRATE 50 MG TABLET PO SCH ×2 (09:53→21:58)
[2019-03-27] MEDS: POLYETHYLENE GLYCOL 3350 POWDER 17 GM/1 PACKET PO SCH (09:54)
[2019-03-27] MEDS: LEVOTHYROXINE SODIUM 0.1 MG TABLET PO SCH (09:54)
[2019-03-27] MEDS: AMLODIPINE BESYLATE 10 MG TABLET PO SCH (09:54)
[2019-03-27] MEDS: AMIODARONE HCL 200 MG TABLET PO SCH (09:54)
[2019-03-27] MEDS: BUSPIRONE HCL 10 MG TABLET PO SCH ×2 (09:54→21:58)
--- NOTE | 2019-03-27 16:05 | PDOC PROGRESS REPORT ---
Subjective Progress Note for:: 03/27/19 Subjective:: Patient still complains of back pain in her right paraspinal region. Patient denies any involvement of her right hip or mid spine and just occurs at the region her muscle. Denies any shortness of breath. Patient is still very much afraid to attempt to walk despite my interaction with her and me trying to encourage her to give physical therapy a shot continue to attempt to ambulate. Patient is overwhelmingly scared of falling at this point. I discussed removal of her Silva catheter but patient is insisting that I maintain it because she does not want to ambulate and that she is having a serious phobia for walking. She states that she did used to use any Silva at home and is very much aware of the risk of urinary tract infection if Silva is maintained and insist the Silva be maintained despite this risk. Reason For Visit: ACUTE ON CHRONIC DIASTOLIC CONGESTIVE HEART FAILUR Physical Exam Vital Signs: Temp Pulse Resp BP Pulse Ox 98.5 F 102 H 16 128/64 H 97 03/27/19 11:38 03/27/19 14:00 03/27/19 11:38 03/27/19 11:38 03/27/19 11:38 Intake & Output 03/26/19 03/27/19 03/28/19 06:59 06:59 06:59 Intake Total 1480 1317 480 Output Total 3275 3150 1000 Balance -1795 -0823 -520 Weight 225.1 kg 223.4 kg General appearance: PRESENT: no acute distress, cooperative, morbidly obese Neck exam: ABSENT: JVD Respiratory exam: PRESENT: clear to auscultation rachel, symmetrical, unlabored. ABSENT: tachypnea, wheezes Cardiovascular exam: PRESENT: RRR, +S1, +S2. ABSENT: tachycardia GI/Abdominal exam: PRESENT: normal bowel sounds, soft. ABSENT: rebound, rigid, tenderness Musculoskeletal exam: PRESENT: other - Right paraspinal tenderness present. No notable swelling in the area. No tenderness or swelling over right hip and no tenderness over the mid spine on palpation Neurological exam: PRESENT: alert, awake, oriented to person, oriented to place, oriented to time, oriented to situation Results Laboratory Results: 03/26/19 06:00 03/27/19 05:38 03/27/19 03/27/19 05:38 05:38 VBG pH 7.46 H VBG pCO2 59.6 VBG HCO3 41.3 H VBG Base Excess 15.1 Sodium 141.8 Potassium 4.0 Chloride 93 L Carbon Dioxide 40 H* Anion Gap 9 BUN 71 H Creatinine 2.21 H Est GFR ( Amer) 28 L Glucose 80 Calcium 8.6 Magnesium 2.0 03/19/19 22:55 Blood Blood Culture (PCR) - Final Staphylococcus Species 03/19/19 22:55 Blood Blood Culture - Final Staphylococcus Epidermidis 03/19/19 03/20/19 03/20/19 21:23 03:06 10:15 Troponin I < 0.012 < 0.012 < 0.012 NT-Pro-B Natriuret Pep 9280 H 03/20/19 15:35 Troponin I < 0.012 NT-Pro-B Natriuret Pep Impressions: Chest X-Ray 03/19/19 20:40 IMPRESSION: Cardiomegaly. Mixed interstitial and airspace opacities copyright 2010 [employer]- All Rights Reserved Shoulder X-Ray 03/19/19 20:40 IMPRESSION: Osteopenia. Minor degenerative change copyright 2010 [employer]- All Rights Reserved Assessment and Plan - Diagnosis (1) Acute on chronic diastolic congestive heart failure Is this a current diagnosis for this admission?: Yes Plan: 03/20/2019-aggressive diuretic regimen. Continue cardiac medications. 03/21/2019-continue aggressive diuresis. Goal is to continue a net negative fluid balance. 03/22/2019-continue current treatment plan 03/23/2019-significant improvement with aggressive diuresis 03/24/2019-patient has diuresed very nicely over the past several days on Bumex 2 mg IV every 6 hours. I will hold Bumex as of now and recheck metabolic panel and restart Bumex at oral dose if creatinine is stable or improved. 03/25/2019-started patient on p.o. Bumex 2 mg twice daily. Continue to monitor creatinine. 03/26/2019-patient has been diuresing quite a bit from yesterday. Creatinine continues to improve as well. However bicarb is notably high. Given the improvement in creatinine, I will continue Bumex 2 mg twice a day for today and consider changing tomorrow to daily. I will check a VBG tomorrow morning to see if bicarb elevation is from metabolic compensation for respiratory acidosis versus contraction alkalosis. 03/27/2019-VBG this morning demonstrating some additional contraction metabolic alkalosis. Even though creatinine is improving, I will hold diuresis for today and restart patient on Bumex 2 mg daily tomorrow p.o. we will continue to monitor bicarbonate levels (2) Acute on chronic respiratory failure with hypoxia and hypercapnia Is this a current diagnosis for this admission?: Yes Plan: 03/20/2019-BiPAP for hypercapnia. Oxygen supplementation for hypoxia. 03/21/2019-venous blood gas reveals significant improvement in PCO2. Will start trials of nasal cannula. Oxygen saturation goal is 90 to 94%. 03/22/2019-the patient has responded very well to BiPAP therapy. With her significant obesity I am confident that she has obstructive sleep apnea. We reviewed the need for a sleep study. We also discussed the need to minimize oxygen therapy and keep the oxygen saturation between 90 and 94% with patient's who have significant COPD. Continue current regimen and educate the patient further about her underlying disease. 03/23/2019-the patient is resting on nasal cannula. As noted above we had a long discussion about oxygen saturations while on supplemental oxygen. We again reviewed the need for sleep study as she has an extremely high probability of having obstructive sleep apnea. 03/24/2019 oxygen supplementation via nasal cannula. Patient likely does have obesity hypoventilation syndrome given her weight and hypercarbic hypoxic respiratory failure. Patient will certainly benefit from nocturnal BiPAP I believe but will likely need a sleep study to qualify for this. In the meantime we will continue with oxygen supplementation. 03/25/2019-continue BiPAP for hypercarbic respiratory failure likely from obesity hypoventilation syndrome. (3) Anxiety Is this a current diagnosis for this admission?: Yes Plan: Patient continues to demonstrate a significant overwhelming phobia for walking at this point Patient was seen by psychiatry continue buspirone. Patient will benefit from continued long-term psychotherapy as well. (4) Diabetes mellitus type 2 in obese Is this a current diagnosis for this admission?: Yes Plan: Patient has been having controlled blood sugar readings and has not been on any metformin which she used to take at home. She has also not been requiring any sliding scale insulin coverage. Improving blood sugar may be secondary to her kidney injury. I will check hemoglobin A1c in the morning. Continue sliding scale coverage. (5) Longstanding persistent atrial fibrillation Is this a current diagnosis for this admission?: Yes Plan: This was diagnosed several years ago by her primary care provider at the time and according to patient, she had a discussed need for anticoagulation [likely given her chads vasc score>2] but she had declined it at that time and was simply placed on aspirin 325 mg daily. Informed patient of increased risk of stroke if she really does have hx of AFib in the absence of anticoagulation and elevated CHADSVASC and she is aware. Given the patient has been in junctional tachycardia and not A. fib throughout her stay in the hospital, I will simply resume her aspirin 325 mg daily and have her follow-up with her primary care provider regarding need for anticoagulation. Continue amiodarone Metoprolol tartrate increased to 75 mg twice daily (6) Moderate to severe pulmonary hypertension Is this a current diagnosis for this admission?: Yes Plan: patient had TTE on 03/03/2019 which showed RVSP of 58 to 63 mmHg, EF of 65%, mild to moderate mitral valve calcification with no evidence of regurgitation or stenosis, mild AV stenosis. The exact type of her pulmonary hypertension is uncertain as patient has never had a right heart catheterization. Potential causes include left heart failure or type III pulmonary hypertension from either undiagnosed SAMI/OHS. Ultimately, I do agree the patient will benefit from nocturnal BiPAP which we will try to qualify patient for if possible. Planning to discharge patient (7) Morbid obesity with body mass index of 70 and over in adult Is this a current diagnosis for this admission?: Yes Plan: BMI is 94.5. Certainly a negative contributing factor to many of her comorbidities. (8) Constipation Qualifiers: Constipation type: unspecified constipation type Qualified Code(s): K59.00 - Constipation, unspecified Is this a current diagnosis for this admission?: Yes Plan: Had small amount of bowel movement yesterday Continue MiraLAX (9) Back pain Qualifiers: Back pain location: low back pain Chronicity: acute Back pain laterality: right Sciatica presence: without sciatica Qualified Code(s): M54.5 - Low back pain Is this a current diagnosis for this admission?: Yes Plan: My pain involves right paraspinal muscles with no involvement of her right hip for her spine on examination. Likely muscle pain since starting physical therapy and also positional Continue lidocaine patches, Tylenol and tramadol for breakthrough pain Flexeril started - Time Time Spent with patient: 15-24 minutes
[2019-03-28] MEDS: NITROGLYCERIN 2% OINTMENT 1 GM PACKET TP SCH ×4 (00:12→17:26)
[2019-03-28] MEDS: CYCLOBENZAPRINE HCL 10 MG TABLET PO PRN ×2 (00:55→22:04)
[2019-03-28] MEDS: ACETAMINOPHEN 325 MG TABLET PO PRN ×2 (05:24→22:03)
[2019-03-28] MEDS: HEPARIN SOD (PORCINE) 5,000 UNIT/ML 1 ML VIAL SUBCUT SCH ×3 (05:28→21:56)
[2019-03-28 06:51] LABS: BLOOD UREA NITROGEN 66 mg/dL (7-20); CALCIUM 8.4 mg/dL (8.4-10.2); CHLORIDE 93 mmol/L (98-107); GLUCOSE 107 mg/dL (75-110); POTASSIUM 4.1 mmol/L (3.6-5.0)
[2019-03-28 06:53] LABS: ANION GAP 8 (5-19)
[2019-03-28 07:06] LABS: CARBON DIOXIDE 40 mmol/L (22-30)
[2019-03-28] MEDS: INSULIN REG, HUMAN 100 UNIT/ML 3 ML VIAL (PYX) SUBCUT SCH ×4 (08:07→21:57)
[2019-03-28] MEDS: LEVOTHYROXINE SODIUM 0.1 MG TABLET PO SCH (09:04)
[2019-03-28] MEDS: POLYETHYLENE GLYCOL 3350 POWDER 17 GM/1 PACKET PO SCH (09:04)
[2019-03-28] MEDS: ASPIRIN 325 MG TABLET PO SCH (09:04)
[2019-03-28] MEDS: AMIODARONE HCL 200 MG TABLET PO SCH (09:04)
[2019-03-28] MEDS: CALCITRIOL 0.25 MCG CAPSULE PO SCH (09:05)
[2019-03-28] MEDS: NORMAL SALINE 1000 ML 1,000 ML IV PRN ×2 (09:05→17:31)
[2019-03-28] MEDS: METOPROLOL TARTRATE 50 MG TABLET PO SCH ×2 (09:05→22:05)
[2019-03-28] MEDS: LIDOCAINE 5% (700 MG) TRANSDERMAL ADH..PATCH TP SCH (09:05)
[2019-03-28] MEDS: BUSPIRONE HCL 10 MG TABLET PO SCH ×2 (09:05→22:05)
[2019-03-28] MEDS: AMLODIPINE BESYLATE 10 MG TABLET PO SCH (09:05)
--- NOTE | 2019-03-28 14:12 | PDOC PROGRESS REPORT ---
Subjective Progress Note for:: 03/28/19 Subjective:: Patient still having some back pain. Walked with physical therapy today felt sore in the muscles afterwards. Reason For Visit: ACUTE ON CHRONIC DIASTOLIC CONGESTIVE HEART FAILUR Physical Exam Vital Signs: Temp Pulse Resp BP Pulse Ox 98.9 F 106 H 18 135/68 H 98 03/28/19 04:04 03/28/19 07:00 03/28/19 04:51 03/28/19 04:04 03/28/19 08:00 Intake & Output 03/27/19 03/28/19 03/29/19 06:59 06:59 06:59 Intake Total 1317 840 480 Output Total 3150 3075 500 Balance -8351 -196 -07 Weight 223.4 kg 221.9 kg General appearance: PRESENT: no acute distress, cooperative Neck exam: ABSENT: JVD Respiratory exam: PRESENT: clear to auscultation rachel, symmetrical, unlabored. ABSENT: tachypnea, wheezes Cardiovascular exam: PRESENT: RRR, +S1, +S2. ABSENT: systolic murmur, tachycardia GI/Abdominal exam: PRESENT: normal bowel sounds, soft. ABSENT: rebound, rigid, tenderness Neurological exam: PRESENT: alert, awake, oriented to person, oriented to place, oriented to time, oriented to situation Results Laboratory Results: 03/26/19 06:00 03/28/19 06:07 03/28/19 06:07 Sodium 141.4 Potassium 4.1 Chloride 93 L Carbon Dioxide 40 H* Anion Gap 8 BUN 66 H Creatinine 2.34 H Est GFR ( Amer) 26 L Glucose 107 Calcium 8.4 03/19/19 22:55 Blood Blood Culture (PCR) - Final Staphylococcus Species 03/19/19 22:55 Blood Blood Culture - Final Staphylococcus Epidermidis 03/19/19 03/20/19 03/20/19 21:23 03:06 10:15 Troponin I < 0.012 < 0.012 < 0.012 NT-Pro-B Natriuret Pep 9280 H 03/20/19 03/28/19 15:35 06:07 Troponin I < 0.012 NT-Pro-B Natriuret Pep 5040 H Impressions: Chest X-Ray 03/19/19 20:40 IMPRESSION: Cardiomegaly. Mixed interstitial and airspace opacities copyright 2011 [employer]- All Rights Reserved Shoulder X-Ray 03/19/19 20:40 IMPRESSION: Osteopenia. Minor degenerative change copyright 2010 [employer]- All Rights Reserved Assessment and Plan - Diagnosis (1) Acute on chronic diastolic congestive heart failure Is this a current diagnosis for this admission?: Yes Plan: 03/20/2019-aggressive diuretic regimen. Continue cardiac medications. 03/21/2019-continue aggressive diuresis. Goal is to continue a net negative fluid balance. 03/22/2019-continue current treatment plan 03/23/2019-significant improvement with aggressive diuresis 03/24/2019-patient has diuresed very nicely over the past several days on Bumex 2 mg IV every 6 hours. I will hold Bumex as of now and recheck metabolic panel and restart Bumex at oral dose if creatinine is stable or improved. 03/25/2019-started patient on p.o. Bumex 2 mg twice daily. Continue to monitor creatinine. 03/26/2019-patient has been diuresing quite a bit from yesterday. Creatinine continues to improve as well. However bicarb is notably high. Given the improvement in creatinine, I will continue Bumex 2 mg twice a day for today and consider changing tomorrow to daily. I will check a VBG tomorrow morning to see if bicarb elevation is from metabolic compensation for respiratory acidosis versus contraction alkalosis. 03/27/2019-VBG this morning demonstrating some additional contraction metabolic alkalosis. Even though creatinine is improving, I will hold diuresis for today and restart patient on Bumex 2 mg daily tomorrow p.o. we will continue to monitor bicarbonate levels 03/28/2019-patient continues to have contraction alkalosis because she is now self diuresing even without any diuretics as she was net -2.2 L yesterday with her diuretics held. She still has peripheral edema will ultimately still require more diuresis in the long run but appears to be intravascularly volume depleted at this moment. As such I will give some fluid back via IV fluids and continue to monitor electrolytes and renal function. (2) Acute on chronic respiratory failure with hypoxia and hypercapnia Is this a current diagnosis for this admission?: Yes Plan: 03/20/2019-BiPAP for hypercapnia. Oxygen supplementation for hypoxia. 03/21/2019-venous blood gas reveals significant improvement in PCO2. Will start trials of nasal cannula. Oxygen saturation goal is 90 to 94%. 03/22/2019-the patient has responded very well to BiPAP therapy. With her significant obesity I am confident that she has obstructive sleep apnea. We reviewed the need for a sleep study. We also discussed the need to minimize oxygen therapy and keep the oxygen saturation between 90 and 94% with patient's who have significant COPD. Continue current regimen and educate the patient further about her underlying disease. 03/23/2019-the patient is resting on nasal cannula. As noted above we had a long discussion about oxygen saturations while on supplemental oxygen. We again reviewed the need for sleep study as she has an extremely high probability of having obstructive sleep apnea. 03/24/2019 oxygen supplementation via nasal cannula. Patient likely does have obesity hypoventilation syndrome given her weight and hypercarbic hypoxic respiratory failure. Patient will certainly benefit from nocturnal BiPAP I believe but will likely need a sleep study to qualify for this. In the meantime we will continue with oxygen supplementation. 03/25/2019-continue BiPAP for hypercarbic respiratory failure likely from obesity hypoventilation syndrome. (3) Anxiety Is this a current diagnosis for this admission?: Yes Plan: Patient continues to demonstrate a significant overwhelming phobia for walking at this point Patient was seen by psychiatry continue buspirone. Patient will benefit from continued long-term psychotherapy as well. (4) Diabetes mellitus type 2 in obese Is this a current diagnosis for this admission?: Yes Plan: Patient has been having controlled blood sugar readings and has not been on any metformin which she used to take at home. She has also not been requiring any sliding scale insulin coverage. Improving blood sugar may be secondary to her kidney injury. I will check hemoglobin A1c in the morning. Continue sliding scale coverage. (5) Longstanding persistent atrial fibrillation Is this a current diagnosis for this admission?: Yes Plan: This was diagnosed several years ago by her primary care provider at the time and according to patient, she had a discussed need for anticoagulation [likely given her chads vasc score>2] but she had declined it at that time and was simply placed on aspirin 325 mg daily. Informed patient of increased risk of stroke if she really does have hx of AFib in the absence of anticoagulation and elevated CHADSVASC and she is aware. Given the patient has been in junctional tachycardia and not A. fib throughout her stay in the hospital, I will simply resume her aspirin 325 mg daily and have her follow-up with her primary care provider regarding need for anticoagulation. Continue amiodarone Continue metoprolol tartrate 75 mg twice daily (6) Moderate to severe pulmonary hypertension Is this a current diagnosis for this admission?: Yes Plan: patient had TTE on 03/03/2019 which showed RVSP of 58 to 63 mmHg, EF of 65%, mild to moderate mitral valve calcification with no evidence of regurgitation or stenosis, mild AV stenosis. The exact type of her pulmonary hypertension is uncertain as patient has never had a right heart catheterization. Potential causes include left heart failure or type III pulmonary hypertension from either undiagnosed SAMI/OHS. Ultimately, I do agree the patient will benefit from nocturnal BiPAP which we will try to qualify patient for if possible. Planning to discharge patient (7) Morbid obesity with body mass index of 70 and over in adult Is this a current diagnosis for this admission?: Yes Plan: BMI is 94.5. Certainly a negative contributing factor to many of her comorbidities. (8) Constipation Qualifiers: Constipation type: unspecified constipation type Qualified Code(s): K59.00 - Constipation, unspecified Is this a current diagnosis for this admission?: Yes Plan: Continue MiraLAX (9) Back pain Qualifiers: Back pain location: low back pain Chronicity: acute Back pain laterality: right Sciatica presence: without sciatica Qualified Code(s): M54.5 - Low back pain Is this a current diagnosis for this admission?: Yes Plan: My pain involves right paraspinal muscles with no involvement of her right hip for her spine on examination. Likely muscle pain since starting physical therapy and also positional Continue lidocaine patches, Tylenol and tramadol for breakthrough pain Flexeril started (10) Physical debility Is this a current diagnosis for this admission?: Yes Plan: Likely impacted by patient's superobesity Patient will be discharged to long-term care facility for continued physical the rapy - Time Time Spent with patient: 15-24 minutes
[2019-03-28] MEDS: TRAMADOL HCL 50 MG TABLET PO PRN (14:43)
[2019-03-29] MEDS: NITROGLYCERIN 2% OINTMENT 1 GM PACKET TP SCH ×4 (02:21→17:17)
[2019-03-29] MEDS: NORMAL SALINE 1000 ML 1,000 ML IV PRN (02:21)
[2019-03-29 05:01] LABS: BLOOD UREA NITROGEN 69 mg/dL (7-20); CALCIUM 7.9 mg/dL (8.4-10.2); CHLORIDE 95 mmol/L (98-107); GLUCOSE 96 mg/dL (75-110); POTASSIUM 4.3 mmol/L (3.6-5.0)
[2019-03-29] MEDS: HEPARIN SOD (PORCINE) 5,000 UNIT/ML 1 ML VIAL SUBCUT SCH ×3 (05:02→21:25)
[2019-03-29 05:09] LABS: ANION GAP 6 (5-19); CARBON DIOXIDE 38 mmol/L (22-30)
[2019-03-29] MEDS: ACETAMINOPHEN 325 MG TABLET PO PRN ×3 (05:37→17:16)
[2019-03-29] MEDS ORDERED: NORMAL SALINE 1000 ML 1,000 ML IV PRN (08:19)
[2019-03-29] MEDS: ASPIRIN 325 MG TABLET PO SCH (09:58)
[2019-03-29] MEDS: INSULIN REG, HUMAN 100 UNIT/ML 3 ML VIAL (PYX) SUBCUT SCH ×4 (09:58→21:30)
[2019-03-29] MEDS: BUSPIRONE HCL 10 MG TABLET PO SCH ×2 (09:58→21:30)
[2019-03-29] MEDS: AMLODIPINE BESYLATE 10 MG TABLET PO SCH (10:00)
[2019-03-29] MEDS: AMIODARONE HCL 200 MG TABLET PO SCH (10:01)
[2019-03-29] MEDS: METOPROLOL TARTRATE 50 MG TABLET PO SCH ×2 (10:02→21:30)
[2019-03-29] MEDS: POLYETHYLENE GLYCOL 3350 POWDER 17 GM/1 PACKET PO SCH (10:03)
[2019-03-29] MEDS: LEVOTHYROXINE SODIUM 0.1 MG TABLET PO SCH (10:05)
[2019-03-29] MEDS: LIDOCAINE 5% (700 MG) TRANSDERMAL ADH..PATCH TP SCH (10:15)
--- NOTE | 2019-03-29 13:04 | PDOC PROGRESS REPORT ---
Subjective Progress Note for:: 03/29/19 Subjective:: Patient having some improvement in back pain Reason For Visit: ACUTE ON CHRONIC DIASTOLIC CONGESTIVE HEART FAILUR Physical Exam Vital Signs: Temp Pulse Resp BP Pulse Ox 98.1 F 105 H 16 111/56 L 94 03/29/19 11:17 03/29/19 11:17 03/29/19 11:17 03/29/19 11:17 03/29/19 11:17 Intake & Output 03/28/19 03/29/19 03/30/19 06:59 06:59 06:59 Intake Total 840 2840 1360 Output Total 3075 2000 800 Balance -2235 840 560 Weight 221.9 kg 224.6 kg General appearance: PRESENT: no acute distress, cooperative Respiratory exam: PRESENT: clear to auscultation rachel Cardiovascular exam: PRESENT: +S1, +S2 GI/Abdominal exam: PRESENT: normal bowel sounds, soft. ABSENT: rebound, rigid, tenderness Musculoskeletal exam: PRESENT: tenderness Neurological exam: PRESENT: alert, awake, oriented to person, oriented to place Results Laboratory Results: 03/26/19 06:00 03/29/19 04:38 03/29/19 04:38 Sodium 138.9 Potassium 4.3 Chloride 95 L Carbon Dioxide 38 H Anion Gap 6 BUN 69 H Creatinine 2.13 H Est GFR ( Amer) 29 L Glucose 96 Calcium 7.9 L Magnesium 1.9 03/19/19 03/20/19 03/20/19 21:23 03:06 10:15 Troponin I < 0.012 < 0.012 < 0.012 NT-Pro-B Natriuret Pep 9280 H 03/20/19 03/28/19 15:35 06:07 Troponin I < 0.012 NT-Pro-B Natriuret Pep 5040 H Impressions: Chest X-Ray 03/19/19 20:40 IMPRESSION: Cardiomegaly. Mixed interstitial and airspace opacities copyright 2010 [employer]- All Rights Reserved Shoulder X-Ray 03/19/19 20:40 IMPRESSION: Osteopenia. Minor degenerative change copyright 2010 [employer]- All Rights Reserved Assessment and Plan - Diagnosis (1) Acute on chronic diastolic congestive heart failure Is this a current diagnosis for this admission?: Yes Plan: 03/20/2019-aggressive diuretic regimen. Continue cardiac medications. 03/21/2019-continue aggressive diuresis. Goal is to continue a net negative fluid balance. 03/22/2019-continue current treatment plan 03/23/2019-significant improvement with aggressive diuresis 03/24/2019-patient has diuresed very nicely over the past several days on Bumex 2 mg IV every 6 hours. I will hold Bumex as of now and recheck metabolic panel and restart Bumex at oral dose if creatinine is stable or improved. 03/25/2019-started patient on p.o. Bumex 2 mg twice daily. Continue to monitor creatinine. 03/26/2019-patient has been diuresing quite a bit from yesterday. Creatinine continues to improve as well. However bicarb is notably high. Given the improvement in creatinine, I will continue Bumex 2 mg twice a day for today and consider changing tomorrow to daily. I will check a VBG tomorrow morning to see if bicarb elevation is from metabolic compensation for respiratory acidosis versus contraction alkalosis. 03/27/2019-VBG this morning demonstrating some additional contraction metabolic alkalosis. Even though creatinine is improving, I will hold diuresis for today and restart patient on Bumex 2 mg daily tomorrow p.o. we will continue to monitor bicarbonate levels 03/28/2019-patient continues to have contraction alkalosis because she is now self diuresing even without any diuretics as she was net -2.2 L yesterday with her diuretics held. She still has peripheral edema will ultimately still require more diuresis in the long run but appears to be intravascularly volume depleted at this moment. As such I will give some fluid back via IV fluids and continue to monitor electrolytes and renal function. 03/29/2019-kidney function and contraction alkalosis improving with gentle IV fluids. Will give IV fluids until 4 PM today then discontinue. Planning to restart on gentle diuresis tomorrow or next (2) Acute on chronic respiratory failure with hypoxia and hypercapnia Is this a current diagnosis for this admission?: Yes Plan: Secondary to obesity hypoventilation syndrome. Nocturnal BiPAP (3) Anxiety Is this a current diagnosis for this admission?: Yes Plan: Patient continues to demonstrate a significant overwhelming phobia for walking at this point Patient was seen by psychiatry continue buspirone. Patient will benefit from continued long-term psychotherapy as well. (4) Diabetes mellitus type 2 in obese Is this a current diagnosis for this admission?: Yes Plan: Has not been requiring any anti-glycemic medications. Hemoglobin A1c of 6. Managed with diet control for now. Metformin discontinued on admission given renal function. (5) Longstanding persistent atrial fibrillation Is this a current diagnosis for this admission?: Yes Plan: This was diagnosed several years ago by her primary care provider at the time and according to patient, she had a discussed need for anticoagulation [likely given her chads vasc score>2] but she had declined it at that time and was simply placed on aspirin 325 mg daily. Informed patient of increased risk of stroke if she really does have hx of AFib in the absence of anticoagulation and elevated CHADSVASC and she is aware. Given the patient has been in junctional tachycardia and not A. fib throughout her stay in the hospital, I will simply resume her aspirin 325 mg daily and have her follow-up with her primary care provider regarding need for anticoagulation. Continue amiodarone Continue metoprolol tartrate 75 mg twice daily (6) Moderate to severe pulmonary hypertension Is this a current diagnosis for this admission?: Yes Plan: patient had TTE on 03/03/2019 which showed RVSP of 58 to 63 mmHg, EF of 65%, mild to moderate mitral valve calcification with no evidence of regurgitation or stenosis, mild AV stenosis. The exact type of her pulmonary hypertension is uncertain as patient has never had a right heart catheterization. Potential causes include left heart failure or type III pulmonary hypertension from either undiagnosed SAMI/OHS. Ultimately, I do agree the patient will benefit from nocturnal BiPAP which we will try to qualify patient for if possible. Planning to discharge patient (7) Morbid obesity with body mass index of 70 and over in adult Is this a current diagnosis for this admission?: Yes Plan: BMI is 94.5. Certainly a negative contributing factor to many of her comorbidities. (8) Constipation Qualifiers: Constipation type: unspecified constipation type Qualified Code(s): K59.00 - Constipation, unspecified Is this a current diagnosis for this admission?: Yes Plan: Continue MiraLAX (9) Back pain Qualifiers: Back pain location: low back pain Chronicity: acute Back pain laterality: right Sciatica presence: without sciatica Qualified Code(s): M54.5 - Low back pain Is this a current diagnosis for this admission?: Yes Plan: My pain involves right paraspinal muscles with no involvement of her right hip for her spine on examination. Likely muscle pain since starting physical therapy and also positional Continue lidocaine patches, Tylenol and tramadol for breakthrough pain Flexeril started (10) Physical debility Is this a current diagnosis for this admission?: Yes Plan: Likely impacted by patient's superobesity Patient will be discharged to long-term care facility for continued physical therapy (11) CKD (chronic kidney disease), stage IV Is this a current diagnosis for this admission?: Yes Plan: Monitor BMP - Time Time Spent with patient: Less than 15 minutes
[2019-03-29] MEDS: TRAMADOL HCL 50 MG TABLET PO PRN (21:29)
[2019-03-29] MEDS: CYCLOBENZAPRINE HCL 10 MG TABLET PO PRN (23:44)
[2019-03-30] MEDS: ACETAMINOPHEN 325 MG TABLET PO PRN ×4 (02:45→21:38)
[2019-03-30] MEDS: HEPARIN SOD (PORCINE) 5,000 UNIT/ML 1 ML VIAL SUBCUT SCH ×3 (05:19→21:33)
[2019-03-30 07:03] LABS: ANION GAP 8 (5-19); BLOOD UREA NITROGEN 64 mg/dL (7-20); CALCIUM 8.2 mg/dL (8.4-10.2); CARBON DIOXIDE 38 mmol/L (22-30); CHLORIDE 93 mmol/L (98-107); GLUCOSE 83 mg/dL (75-110); POTASSIUM 4.1 mmol/L (3.6-5.0)
[2019-03-30] MEDS: ASPIRIN 325 MG TABLET PO SCH (09:30)
[2019-03-30] MEDS: LEVOTHYROXINE SODIUM 0.1 MG TABLET PO SCH (09:31)
[2019-03-30] MEDS: METOPROLOL TARTRATE 50 MG TABLET PO SCH ×2 (09:32→21:37)
[2019-03-30] MEDS: AMIODARONE HCL 200 MG TABLET PO SCH (09:32)
[2019-03-30] MEDS: AMLODIPINE BESYLATE 10 MG TABLET PO SCH (09:32)
[2019-03-30] MEDS: INSULIN REG, HUMAN 100 UNIT/ML 3 ML VIAL (PYX) SUBCUT SCH ×4 (09:33→21:33)
[2019-03-30] MEDS: BUSPIRONE HCL 10 MG TABLET PO SCH ×2 (09:33→21:38)
[2019-03-30] MEDS: LIDOCAINE 5% (700 MG) TRANSDERMAL ADH..PATCH TP SCH (09:33)
[2019-03-30] MEDS: POLYETHYLENE GLYCOL 3350 POWDER 17 GM/1 PACKET PO SCH (09:34)
[2019-03-30] MEDS: CYCLOBENZAPRINE HCL 10 MG TABLET PO PRN (13:42)
--- NOTE | 2019-03-30 15:20 | PDOC PROGRESS REPORT ---
Subjective Progress Note for:: 03/30/19 Subjective:: Patient is doing well today. still having muscle aches. Reason For Visit: ACUTE ON CHRONIC DIASTOLIC CONGESTIVE HEART FAILUR Physical Exam Vital Signs: Temp Pulse Resp BP Pulse Ox 97.9 F 102 H 16 103/56 L 99 03/30/19 11:26 03/30/19 14:00 03/30/19 11:26 03/30/19 11:26 03/30/19 11:26 Intake & Output 03/29/19 03/30/19 03/31/19 06:59 06:59 06:59 Intake Total 2840 2320 480 Output Total 1999 2300 500 Balance 840 20 -20 Weight 224.6 kg 225 kg General appearance: PRESENT: no acute distress, cooperative Neck exam: ABSENT: JVD Respiratory exam: PRESENT: clear to auscultation rachel GI/Abdominal exam: PRESENT: normal bowel sounds, soft. ABSENT: tenderness Extremities exam: PRESENT: +1 edema Neurological exam: PRESENT: alert, awake Results Laboratory Results: 03/26/19 06:00 03/30/19 06:15 03/30/19 06:15 Sodium 138.9 Potassium 4.1 Chloride 93 L Carbon Dioxide 38 H Anion Gap 8 BUN 64 H Creatinine 2.45 H Est GFR ( Amer) 25 L Glucose 83 Calcium 8.2 L Magnesium 1.9 03/24/19 23:23 Blood Blood Culture - Final NO GROWTH IN 5 DAYS 03/24/19 22:27 Blood Blood Culture - Final NO GROWTH IN 5 DAYS 03/19/19 03/20/19 03/20/19 21:23 03:06 10:15 Troponin I < 0.012 < 0.012 < 0.012 NT-Pro-B Natriuret Pep 9280 H 03/20/19 03/28/19 15:35 06:07 Troponin I < 0.012 NT-Pro-B Natriuret Pep 5040 H Impressions: Chest X-Ray 03/19/19 20:40 IMPRESSION: Cardiomegaly. Mixed interstitial and airspace opacities copyright 2010 [employer]- All Rights Reserved Shoulder X-Ray 03/19/19 20:40 IMPRESSION: Osteopenia. Minor degenerative change copyright 2010 [employer]- All Rights Reserved Assessment and Plan - Diagnosis (1) Acute on chronic diastolic congestive heart failure Is this a current diagnosis for this admission?: Yes (2) Acute on chronic respiratory failure with hypoxia and hypercapnia Is this a current diagnosis for this admission?: Yes (3) Anxiety Is this a current diagnosis for this admission?: Yes (4) Diabetes mellitus type 2 in obese Is this a current diagnosis for this admission?: Yes (5) Longstanding persistent atrial fibrillation Is this a current diagnosis for this admission?: Yes (6) Moderate to severe pulmonary hypertension Is this a current diagnosis for this admission?: Yes (7) Morbid obesity with body mass index of 70 and over in adult Is this a current diagnosis for this admission?: Yes (8) Constipation Qualifiers: Constipation type: unspecified constipation type Qualified Code(s): K59.00 - Constipation, unspecified Is this a current diagnosis for this admission?: Yes (9) Back pain Qualifiers: Back pain location: low back pain Chronicity: acute Back pain laterality: right Sciatica presence: without sciatica Qualified Code(s): M54.5 - Low back pain Is this a current diagnosis for this admission?: Yes (10) Physical debility Is this a current diagnosis for this admission?: Yes (11) CKD (chronic kidney disease), stage IV Is this a current diagnosis for this admission?: Yes - Plan Summary Summary: IV fluids discontinued yesterday afternoon. Will allow patient to self diurese. We will plan on resuming Bumex p.o. at lower dose tomorrow. Anticipated discharge for tomorrow to long-term care facility. - Time Time Spent with patient: Less than 15 minutes
[2019-03-30] MEDS: BUMETANIDE 1 MG TABLET PO SCH (18:05)
[2019-03-31] MEDS: CYCLOBENZAPRINE HCL 10 MG TABLET PO PRN (00:25)
[2019-03-31] MEDS: HEPARIN SOD (PORCINE) 5,000 UNIT/ML 1 ML VIAL SUBCUT SCH ×3 (05:09→21:41)
[2019-03-31 05:12] LABS: HEMATOCRIT 29.7 % (36.0-47.0); HEMOGLOBIN 9.6 g/dL (12.0-15.5); MEAN CORPUSCULAR HEMOGLOBIN 27.5 pg (27.0-33.4); MEAN CORPUSCULAR HGB CONC 32.3 g/dL (32.0-36.0); MEAN CORPUSCULAR VOLUME 85 fl (80-97); PLATELET COUNT 155 10^3/uL (150-450); RED CELL DISTRIBUTION WIDTH 24.6 % (11.5-14.0); WHITE BLOOD COUNT 3.8 10^3/uL (4.0-10.5)
[2019-03-31 05:36] LABS: ANION GAP 7 (5-19); BLOOD UREA NITROGEN 66 mg/dL (7-20); CALCIUM 8.4 mg/dL (8.4-10.2); CARBON DIOXIDE 39 mmol/L (22-30); CHLORIDE 92 mmol/L (98-107); GLUCOSE 77 mg/dL (75-110); POTASSIUM 4.1 mmol/L (3.6-5.0)
[2019-03-31] MEDS: INSULIN REG, HUMAN 100 UNIT/ML 3 ML VIAL (PYX) SUBCUT SCH ×4 (07:24→21:42)
[2019-03-31] MEDS: ACETAMINOPHEN 325 MG TABLET PO PRN (07:53)
[2019-03-31] MEDS: CALCITRIOL 0.25 MCG CAPSULE PO SCH (07:53)
[2019-03-31] MEDS ORDERED: BISACODYL 10 MG SUPP.RECT PR ONE (10:00)
[2019-03-31] MEDS ORDERED: BISACODYL 5 MG TABEC PO ONE (10:00)
[2019-03-31] MEDS: POLYETHYLENE GLYCOL 3350 POWDER 17 GM/1 PACKET PO SCH (10:35)
[2019-03-31] MEDS: BUMETANIDE 1 MG TABLET PO SCH (10:36)
[2019-03-31] MEDS: AMIODARONE HCL 200 MG TABLET PO SCH (10:36)
[2019-03-31] MEDS: METOPROLOL TARTRATE 50 MG TABLET PO SCH ×2 (10:36→21:46)
[2019-03-31] MEDS: BUSPIRONE HCL 10 MG TABLET PO SCH ×2 (10:36→21:47)
[2019-03-31] MEDS: LIDOCAINE 5% (700 MG) TRANSDERMAL ADH..PATCH TP SCH (10:36)
[2019-03-31] MEDS: ASPIRIN 325 MG TABLET PO SCH (10:36)
[2019-03-31] MEDS: AMLODIPINE BESYLATE 10 MG TABLET PO SCH (10:37)
[2019-03-31] MEDS: LEVOTHYROXINE SODIUM 0.1 MG TABLET PO SCH (10:38)
--- NOTE | 2019-03-31 12:13 | PDOC PROGRESS REPORT ---
Subjective Subjective:: Patient is doing well today. Today she is agreeable with getting Silva removed. Reason For Visit: ACUTE ON CHRONIC DIASTOLIC CONGESTIVE HEART FAILUR Physical Exam Vital Signs: Temp Pulse Resp BP Pulse Ox 97.6 F 101 H 16 117/60 96 03/31/19 07:53 03/31/19 10:01 03/31/19 10:01 03/31/19 07:53 03/31/19 10:01 Intake & Output 03/30/19 03/31/19 04/01/19 06:59 06:59 06:59 Intake Total 2320 1590 Output Total 2300 2150 Balance 20 -560 Weight 225 kg 225.6 kg General appearance: PRESENT: no acute distress, cooperative Neck exam: ABSENT: JVD Respiratory exam: PRESENT: clear to auscultation rachel Cardiovascular exam: PRESENT: RRR, +S1, +S2, tachycardia GI/Abdominal exam: PRESENT: soft. ABSENT: rebound, rigid, tenderness Extremities exam: PRESENT: +1 edema Results Laboratory Results: 03/31/19 04:43 03/31/19 04:43 03/31/19 03/31/19 04:43 04:43 WBC 3.8 L RBC 3.50 L Hgb 9.6 L Hct 29.7 L MCV 85 MCH 27.5 MCHC 32.3 RDW 24.6 H Plt Count 155 Sodium 138.4 Potassium 4.1 Chloride 92 L Carbon Dioxide 39 H Anion Gap 7 BUN 66 H Creatinine 2.58 H Est GFR ( Amer) 23 L Glucose 77 Calcium 8.4 Magnesium 2.0 03/19/19 03/20/19 03/20/19 21:23 03:06 10:15 Troponin I < 0.012 < 0.012 < 0.012 NT-Pro-B Natriuret Pep 9280 H 03/20/19 03/28/19 15:35 06:07 Troponin I < 0.012 NT-Pro-B Natriuret Pep 5040 H Impressions: Chest X-Ray 03/19/19 20:40 IMPRESSION: Cardiomegaly. Mixed interstitial and airspace opacities copyright 2010 [employer]- All Rights Reserved Shoulder X-Ray 03/19/19 20:40 IMPRESSION: Osteopenia. Minor degenerative change copyright 2010 [employer]- All Rights Reserved Assessment and Plan - Diagnosis (1) Acute on chronic diastolic congestive heart failure Is this a current diagnosis for this admission?: Yes (2) Acute on chronic respiratory failure with hypoxia and hypercapnia Is this a current diagnosis for this admission?: Yes (3) Anxiety Is this a current diagnosis for this admission?: Yes (4) Diabetes mellitus type 2 in obese Is this a current diagnosis for this admission?: Yes (5) Longstanding persistent atrial fibrillation Is this a current diagnosis for this admission?: Yes (6) Moderate to severe pulmonary hypertension Is this a current diagnosis for this admission?: Yes (7) Morbid obesity with body mass index of 70 and over in adult Is this a current diagnosis for this admission?: Yes (8) Constipation Qualifiers: Constipation type: unspecified constipation type Qualified Code(s): K59.00 - Constipation, unspecified Is this a current diagnosis for this admission?: Yes (9) Back pain Qualifiers: Back pain location: low back pain Chronicity: acute Back pain laterality: right Sciatica presence: without sciatica Qualified Code(s): M54.5 - Low back pain Is this a current diagnosis for this admission?: Yes (10) Physical debility Is this a current diagnosis for this admission?: Yes (11) CKD (chronic kidney disease), stage IV Is this a current diagnosis for this admission?: Yes - Plan Summary Summary: Started on Bumex 2 mg daily today. Continue to monitor electrolytes and renal function. Pending discharge to long-term care facility [facility] - Time Time Spent with patient: Less than 15 minutes
[2019-03-31] MEDS: TRAMADOL HCL 50 MG TABLET PO PRN (14:23)
[2019-03-31] MEDS: PHARMACY COMMUNICATION ORDER MC SCH (21:47)
[2019-04-01] MEDS: ACETAMINOPHEN 325 MG TABLET PO PRN (00:05)
[2019-04-01] MEDS: CYCLOBENZAPRINE HCL 10 MG TABLET PO PRN (00:05)
[2019-04-01] MEDS: HEPARIN SOD (PORCINE) 5,000 UNIT/ML 1 ML VIAL SUBCUT SCH ×3 (05:09→22:00)
[2019-04-01] MEDS: INSULIN REG, HUMAN 100 UNIT/ML 3 ML VIAL (PYX) SUBCUT SCH ×4 (08:29→22:23)
[2019-04-01] MEDS: BUMETANIDE 1 MG TABLET PO SCH (09:12)
[2019-04-01] MEDS: AMLODIPINE BESYLATE 10 MG TABLET PO SCH (09:12)
[2019-04-01] MEDS: ASPIRIN 325 MG TABLET PO SCH (09:12)
[2019-04-01] MEDS: BUSPIRONE HCL 10 MG TABLET PO SCH ×2 (09:12→22:22)
[2019-04-01] MEDS: POLYETHYLENE GLYCOL 3350 POWDER 17 GM/1 PACKET PO SCH (09:12)
[2019-04-01] MEDS: METOPROLOL TARTRATE 50 MG TABLET PO SCH ×2 (09:12→22:22)
[2019-04-01] MEDS: AMIODARONE HCL 200 MG TABLET PO SCH (09:13)
[2019-04-01] MEDS: TRAMADOL HCL 50 MG TABLET PO PRN (09:13)
[2019-04-01] MEDS: LEVOTHYROXINE SODIUM 0.1 MG TABLET PO SCH (09:14)
[2019-04-01 10:05] LABS: ANION GAP 9 (5-19); BLOOD UREA NITROGEN 66 mg/dL (7-20); CALCIUM 8.8 mg/dL (8.4-10.2); CARBON DIOXIDE 38 mmol/L (22-30); CHLORIDE 92 mmol/L (98-107); GLUCOSE 84 mg/dL (75-110); POTASSIUM 4.4 mmol/L (3.6-5.0)
[2019-04-01] MEDS: LIDOCAINE 5% (700 MG) TRANSDERMAL ADH..PATCH TP SCH (12:05)
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
[2019-04-01] MEDS: PHARMACY COMMUNICATION ORDER MC SCH (22:24)
[2019-04-02] MEDS: HEPARIN SOD (PORCINE) 5,000 UNIT/ML 1 ML VIAL SUBCUT SCH ×3 (05:10→23:23)
[2019-04-02] MEDS: INSULIN REG, HUMAN 100 UNIT/ML 3 ML VIAL (PYX) SUBCUT SCH ×4 (08:42→22:00)
[2019-04-02] MEDS: CALCITRIOL 0.25 MCG CAPSULE PO SCH (08:43)
[2019-04-02] MEDS: METOPROLOL TARTRATE 50 MG TABLET PO SCH ×2 (10:11→22:30)
[2019-04-02] MEDS: POLYETHYLENE GLYCOL 3350 POWDER 17 GM/1 PACKET PO SCH (10:11)
[2019-04-02] MEDS: LEVOTHYROXINE SODIUM 0.1 MG TABLET PO SCH (10:12)
[2019-04-02] MEDS: BUMETANIDE 1 MG TABLET PO SCH (10:12)
[2019-04-02] MEDS: AMLODIPINE BESYLATE 10 MG TABLET PO SCH (10:12)
[2019-04-02] MEDS: BUSPIRONE HCL 10 MG TABLET PO SCH ×2 (10:13→22:30)
[2019-04-02] MEDS: AMIODARONE HCL 200 MG TABLET PO SCH (10:13)
[2019-04-02] MEDS: ASPIRIN 325 MG TABLET PO SCH (10:13)
[2019-04-02] MEDS: LIDOCAINE 5% (700 MG) TRANSDERMAL ADH..PATCH TP SCH (10:14)
[2019-04-02] MEDS: ACETAMINOPHEN 325 MG TABLET PO PRN ×3 (10:19→19:54)
--- NOTE | 2019-04-02 16:38 | PDOC PROGRESS REPORT ---
Subjective Progress Note for:: 04/02/19 Subjective:: OBDULIO SAMUELS is a 54 year old female who presents the emergency room with a 4-day history of dyspnea. She admits that her dyspnea has been gradually worsening over the last 4 days and she has been noncompliant with the use of her home oxygen. Her dyspnea became more severe today and she tried using her home oxygen without improvement, causing her to come to the emergency room. She notes her dyspnea does worsen with activity/exertion. She admits an accompanying nonproductive cough and chest congestion. She admits associated increased edema of her lower extremities. She denies other associated or accompanying signs and symptoms. She admits prior similar episodes related to her heart failure. She has not identified any additional aggravating or ameliorating factors for her dyspnea. Patient is noted to be a very poor historian and is very difficult to get consistent and accurate responses in her interview at the present time. In the emergency room she was found to be hypoxic and hypercapnic requiring BiPAP therapy. BNP was elevated at 9280. Chest x-ray showed cardiomegaly with acute pulmonary edema. Patient was subsequently admitted to the hospital for further evaluation treatment. 04/02/2019. No acute events overnight. Patient pending placement. Reason For Visit: ACUTE ON CHRONIC DIASTOLIC CONGESTIVE HEART FAILUR Physical Exam Vital Signs: Temp Pulse Resp BP Pulse Ox 97.5 F 96 14 120/64 100 04/02/19 07:39 04/02/19 14:00 04/02/19 07:39 04/02/19 07:39 04/02/19 07:39 Intake & Output 04/01/19 04/02/19 04/03/19 06:59 06:59 06:59 Intake Total 740 975 720 Output Total 1575 1805 1000 Balance -835 -830 -280 Weight 224.5 kg 223.6 kg General appearance: PRESENT: morbidly obese Head exam: PRESENT: atraumatic, normocephalic Respiratory exam: PRESENT: clear to auscultation rachel. ABSENT: rales, rhonchi, wheezes Cardiovascular exam: PRESENT: RRR. ABSENT: diastolic murmur, rubs, systolic murmur GI/Abdominal exam: PRESENT: normal bowel sounds, soft. ABSENT: distended, guarding, mass, organolmegaly, rebound, tenderness Neurological exam: PRESENT: alert, awake, oriented to person, oriented to place, oriented to time, oriented to situation, CN II-XII grossly intact. ABSENT: motor sensory deficit Results Laboratory Results: 03/31/19 04:43 04/01/19 09:20 03/19/19 03/20/19 03/20/19 21:23 03:06 10:15 Troponin I < 0.012 < 0.012 < 0.012 NT-Pro-B Natriuret Pep 9280 H 03/20/19 03/28/19 15:35 06:07 Troponin I < 0.012 NT-Pro-B Natriuret Pep 5040 H Impressions: Chest X-Ray 03/19/19 20:40 IMPRESSION: Cardiomegaly. Mixed interstitial and airspace opacities copyright 2010 [employer]- All Rights Reserved Shoulder X-Ray 03/19/19 20:40 IMPRESSION: Osteopenia. Minor degenerative change copyright 2010 [employer]- All Rights Reserved Assessment and Plan - Diagnosis (1) Acute on chronic diastolic congestive heart failure Is this a current diagnosis for this admission?: Yes Plan: Appears euvolemic. No JVD. No lower extremity edema. SPO2 WNL on RA. Acute on chronic diastolic congestive heart failure without due to history of SAMI and pulmonary hypertension. Denies any history of CAD. proBNP on admission 9820. Troponins negative x3. EKG no acute changes. 03/25/2019. 2D echo. LVEF 65%. Mild concentric left ventricular hypertrophy. RSVP 58 to 63 mmHg. Started on Bumex 2 mg p.o. daily and volume restriction. Home meds are atenolol 150 mg p.o. daily, Lasix 60 mg p.o. daily. Continue cardiac diet. Resume home meds upon discharge. Outpatient PCP and cardiology follow-up. (2) Acute on chronic respiratory failure with hypoxia and hypercapnia Is this a current diagnosis for this admission?: Yes Plan: Mostly likelyl secondary to obesity hypoventilation syndrome SPO2 WNL on RA. Was a started on nocturnal BiPAP. Resume CPAP upon discharge. Outpatient pulmonology follow-up and possible outpatient nocturnal polysomnography. (3) Anxiety Is this a current diagnosis for this admission?: Yes Plan: Patient continues to demonstrate a significant overwhelming phobia for walking at this point Psychiatry consulted. Patient is currently on BuSpar. Patient will benefit from continued long-term psychotherapy as well. (4) Constipation Qualifiers: Constipation type: unspecified constipation type Qualified Code(s): K59.00 - Constipation, unspecified Is this a current diagnosis for this admission?: Yes Plan: Resolved. Last bowel movement x1 day. Was a started on p.o. and PRN Dulcolax and MiraLAX. Restart bowel regimen upon discharge encourage high-fiber diet. (5) Diabetes mellitus type 2 in obese Is this a current diagnosis for this admission?: Yes Plan: Well-controlled. Home meds Metformin 500 mg p.o. twice daily. Globin A1c 6%. Start on cardiac diet, sliding scale insulin and hypoglycemia protocol. Restart home meds upon discharge. Outpatient PCP follow-up. (6) Longstanding persistent atrial fibrillation Is this a current diagnosis for this admission?: Yes Plan: Rate controlled. Not anticoagulated. Patient has refused chronic anticoagulation. Was restarted on amiodarone, antiplatelets and beta-blockers. Restart amiodarone, beta-blockers and aspirin. Outpatient PCP and cardiology follow-up. (7) Moderate to severe pulmonary hypertension Is this a current diagnosis for this admission?: Yes Plan: History of severe pulmonary hypertension most likely due to SAMI/obesity hypoventilation syndrome. 2D echo on 03/03/2019 RVSP of 58 to 63 mmHg, EF of 65%, mild to moderate mitral valve calcification with no evidence of regurgitation or stenosis, mild AV stenosis. Denies any history of CAD. No previous left heart cath. Uncertain nature of pulmonary hypertension potential culprits could be left heart failure or type III pulmonary hypertension caused by SAMI/OHS. Continue nocturnal CPAP. Diuretics. Cardiac diet. Outpatient pulmonology follow-up. (8) Morbid obesity with body mass index of 70 and over in adult Is this a current diagnosis for this admission?: Yes Plan: BMI is 94.5. Certainly a negative contributing factor to many of her comorbidities. Patient a candidate for bariatric surgery. It was brought up to patient is unlikely but she adamantly refusing to discuss it or consider stating that she has been able to lose weight in the past and she is sure that she will do it again. (9) Chronic kidney disease Qualifiers: Chronic kidney disease stage: stage 4 (severe) Qualified Code(s): N18.4 - Chronic kidney disease, stage 4 (severe) Is this a current diagnosis for this admission?: Yes Plan: Creatinine at baseline. Nonoliguric. Adequate urine output. Electrolytes WNL. Euvolemic. Avoid NSAIDs and other nephrotoxic meds. Patient nephrology follow-up. (10) Hypothyroid Qualifiers: Hypothyroidism type: unspecified Qualified Code(s): E03.9 - Hypothyroidism, unspecified Is this a current diagnosis for this admission?: Yes Plan: TSH 1.61. Nephrology following recommendations noted. Was restarted home meds. Resume home meds upon discharge. Outpatient PCP follow-up. - Plan Summary Summary: Patient still medically cleared and still awaiting discharge to long-term care facility [facility] will discontinue to monitor her electrolytes and renal function weekly until she follows up with a automation controls expert.
[2019-04-02] MEDS: CYCLOBENZAPRINE HCL 10 MG TABLET PO PRN (19:54)
[2019-04-02] MEDS: PHARMACY COMMUNICATION ORDER MC SCH (22:45)
[2019-04-03] MEDS: HEPARIN SOD (PORCINE) 5,000 UNIT/ML 1 ML VIAL SUBCUT SCH (05:34)
[2019-04-03] MEDS: INSULIN REG, HUMAN 100 UNIT/ML 3 ML VIAL (PYX) SUBCUT SCH ×2 (09:37→12:08)
[2019-04-03] MEDS: AMLODIPINE BESYLATE 10 MG TABLET PO SCH (09:45)
[2019-04-03] MEDS: BUMETANIDE 1 MG TABLET PO SCH (09:46)
[2019-04-03] MEDS: AMIODARONE HCL 200 MG TABLET PO SCH (09:46)
[2019-04-03] MEDS: ASPIRIN 325 MG TABLET PO SCH (09:46)
[2019-04-03] MEDS: METOPROLOL TARTRATE 50 MG TABLET PO SCH (09:46)
[2019-04-03] MEDS: BUSPIRONE HCL 10 MG TABLET PO SCH (09:47)
[2019-04-03] MEDS: LIDOCAINE 5% (700 MG) TRANSDERMAL ADH..PATCH TP SCH (09:47)
[2019-04-03] MEDS: LEVOTHYROXINE SODIUM 0.1 MG TABLET PO SCH (09:48)
[2019-04-03] MEDS: POLYETHYLENE GLYCOL 3350 POWDER 17 GM/1 PACKET PO SCH (09:48)
--- NOTE | 2019-04-03 10:43 | PDOC TRANSFER SUMMARY ---
General Admission Date/PCP: 03/19/19 23:09 Resuscitation Status: Full Code - Transfer Diagnosis (1) Acute on chronic diastolic congestive heart failure Is this a current diagnosis for this admission?: Yes (2) Acute on chronic respiratory failure with hypoxia and hypercapnia Is this a current diagnosis for this admission?: Yes (3) Anxiety Is this a current diagnosis for this admission?: Yes (4) Constipation Is this a current diagnosis for this admission?: Yes (5) Diabetes mellitus type 2 in obese Is this a current diagnosis for this admission?: Yes (6) Longstanding persistent atrial fibrillation Is this a current diagnosis for this admission?: Yes (7) Moderate to severe pulmonary hypertension Is this a current diagnosis for this admission?: Yes (8) Morbid obesity with body mass index of 70 and over in adult Is this a current diagnosis for this admission?: Yes (9) Chronic kidney disease Is this a current diagnosis for this admission?: Yes (10) Hypothyroid Is this a current diagnosis for this admission?: Yes - Transfer Medications Home Medications: Amiodarone HCl [Pacerone] 200 mg PO DAILY 03/20/19 Amlodipine Besylate [Norvasc 10 mg Tablet] 10 mg PO DAILY 03/20/19 Atenolol 150 mg PO DAILY 03/20/19 Calcitriol [Rocaltrol 0.25 mcg Capsule] 1 cap PO MOWEFR@1000 03/20/19 Ferrous Sulfate [Feosol 325 mg Tablet] 325 mg PO DAILY 03/20/19 Furosemide [Lasix 40 mg Tablet] 60 mg PO DAILY 03/20/19 Levothyroxine Sodium [Synthroid] 200 mcg PO MOTUWETHFRSA 03/20/19 Levothyroxine Sodium [Synthroid] 300 mcg PO REED@1000 03/20/19 Lidocaine [Lidocaine Pain Relief] 1 each TP DAILY 03/20/19 Melatonin 5 mg PO QHS 03/20/19 Metformin HCl 500 mg PO BID 03/20/19 Transfer Medications: Current Medications Acetaminophen (Tylenol 325 Mg Tablet) 650 mg PO Q4HP PRN PRN Reason: For headache, pain or fever Stop: 04/18/19 23:32 Last Admin: 04/02/19 19:54 Dose: 650 mg Documented by: Amiodarone HCl (Cordarone 200 Mg Tablet) 200 mg PO DAILY KEESHA Stop: 04/20/19 09:59 Last Admin: 04/03/19 09:46 Dose: 200 mg Documented by: Amlodipine Besylate (Norvasc 10 Mg Tablet) 10 mg PO DAILY [facility] Stop: 04/20/19 09:59 Last Admin: 04/03/19 09:45 Dose: 10 mg Documented by: Aspirin (Aspirin 325 Mg Tablet) 325 mg PO DAILY [facility] Stop: 04/27/19 09:59 Last Admin: 04/03/19 09:46 Dose: 325 mg Documented by: Bumetanide (Bumex 1 Mg Tablet) 2 mg PO DAILY [facility] Stop: 05/01/19 09:59 Last Admin: 04/03/19 09:46 Dose: 2 mg Documented by: Buspirone HCl (Buspar 10 Mg Tablet) 10 mg PO Q12 [facility] Stop: 04/22/19 21:59 Last Admin: 04/03/19 09:47 Dose: 10 mg Documented by: Calcitriol (Rocaltrol 0.25 Mcg Capsule) 0.25 mcg PO MoWeFr@0800 [facility] Stop: 04/20/19 07:59 Last Admin: 04/02/19 08:43 Dose: 0.25 mcg Documented by: Cyclobenzaprine HCl (Flexeril 10 Mg Tablet) 10 mg PO Q8HP PRN PRN Reason: MUSCLE SPASMS Stop: 04/26/19 15:26 Last Admin: 04/02/19 19:54 Dose: 10 mg Documented by: Dextrose (Dextrose Inj 50% Syringe (25 Gm/50 Ml)) 12.5 gm IV PRN PRN; Protocol PRN Reason: FOR BG 50-69 IN ALERT PATIENT Stop: 04/18/19 23:34 Dextrose (Dextrose Inj 50% Syringe (25 Gm/50 Ml)) 25 gm IV PRN PRN; Protocol PRN Reason: PER PROTOCOL Stop: 04/18/19 23:34 Glucagon (Glucagen Inj 1 Mg Vial) 1 mg IM PRN PRN; Protocol PRN Reason: Evaluate for BG < 70 Stop: 04/18/19 23:34 Glucose (Glutose 40% Gel 15 Gm Tube) 15 gm PO PRN PRN; Protocol PRN Reason: FOR BG 50-69 IN ALERT PATIENT Stop: 04/18/19 23:34 Glucose (Glutose 40% Gel 15 Gm Tube) 30 gm PO PRN PRN; Protocol PRN Reason: FOR BG < 50 IN ALERT PATIENT Stop: 04/18/19 23:34 Heparin Sodium (Porcine) (Heparin Inj 5,000 Units/Ml 1 Ml Vial) 5,000 unit SUBCUT Q8 [facility] Stop: 04/19/19 05:59 Last Admin: 04/03/19 05:34 Dose: Not Given Documented by: Hydralazine HCl (Apresoline Inj/Pf 20 Mg/1 Ml Sdv) 20 mg IV Q4HP PRN PRN Reason: Give For Sbp > 160 / Dbp > 100 Stop: 04/18/19 23:32 Insulin Human Regular (Humulin R (Pyxis) Insulin 100 Unit/Ml 3ml) 0 - 15 unit SUBCUT ACHS [facility]; Protocol Stop: 04/19/19 07:59 Last Admin: 04/03/19 09:37 Dose: Not Given Documented by: Levalbuterol HCl (Xopenex Neb 0.63 Mg/3 Ml Ampul) 0.63 mg NEB RTQ2HP PRN PRN Reason: SHORTNESS OF BREATH Stop: 04/18/19 23:32 Levothyroxine Sodium (Synthroid 0.1 Mg Tablet) 0.2 mg PO MoTuWeThFrSa@1000 [facility] Stop: 04/20/19 09:59 Last Admin: 04/03/19 09:48 Dose: 0.2 mg Documented by: Levothyroxine Sodium (Synthroid 0.1 Mg Tablet) 0.3 mg PO Reed@1000 [facility] Stop: 04/22/19 09:59 Last Admin: 03/30/19 09:31 Dose: 0.2 mg Documented by: Lidocaine (Lidoderm 5% (700 Mg) Transdermal Patch) 2 patch TP DAILY [facility] Stop: 04/24/19 14:29 Last Admin: 04/03/19 09:47 Dose: 2 patch Documented by: Metoprolol Tartrate (Lopressor Inj/Pf 5 Mg/5 Ml Sdv) 5 mg IV Q2HP PRN PRN Reason: Give For Sbp > 160 / Dbp > 100 Stop: 04/18/19 23:32 Metoprolol Tartrate (Lopressor 50 Mg Tablet) 75 mg PO Q12 [facility] Stop: 04/26/19 09:59 Last Admin: 04/03/19 09:46 Dose: 75 mg Documented by: Pharmacy Profile Note (Medication Communication Order) 1 each QHS [facility] Stop: 04/30/19 21:59 Last Admin: 04/02/19 22:45 Dose: 1 ea Documented by: Polyethylene Glycol (Miralax Powder 17 Gm/Packet) 17 gm PO DAILY [facility] Stop: 04/26/19 09:59 Last Admin: 04/03/19 09:48 Dose: 17 gm Documented by: Sodium Chloride (Saline Flush 2.5 Ml Monoject Prefil Syrin) 2.5 ml IV Q8 KEESHA Stop: 04/19/19 05:59 Last Admin: 04/03/19 05:34 Dose: Not Given Documented by: - Allergies Allergies/Adverse Reactions: Sulfa (Sulfonamide Antibiotics) Allergy (Verified 02/23/19 00:37) - Diet/Activity Discharge Diet: Cardiac, Diabetic, Other (Comments) Hospital Course Hospital Course: OBDULIO SAMUELS is a 54 year old female who presents the emergency room with a 4-day history of dyspnea. She admits that her dyspnea has been gradually worsening over the last 4 days and she has been noncompliant with the use of her home oxygen. Her dyspnea became more severe today and she tried using her home oxygen without improvement, causing her to come to the emergency room. She notes her dyspnea does worsen with activity/exertion. She admits an accompa nying nonproductive cough and chest congestion. She admits associated increased edema of her lower extremities. She denies other associated or accompanying signs and symptoms. She admits prior similar episodes related to her heart failure. She has not identified any additional aggravating or ameliorating factors for her dyspnea. Patient is noted to be a very poor historian and is very difficult to get consistent and accurate responses in her interview at the present time. In the emergency room she was found to be hypoxic and hypercapnic requiring BiPAP therapy. BNP was elevated at 9280. Chest x-ray showed cardiomegaly with acute pulmonary edema. Patient was subsequently admitted to the hospital for further evaluation treatment. 04/02/2019. No acute events overnight. Patient pending placement. (1) Acute on chronic diastolic congestive heart failure Acute on chronic diastolic congestive heart failure without due to history of SAMI and pulmonary hypertension. Denies any history of CAD. proBNP on admission 9820. Troponins negative x3. EKG no acute changes. 03/25/2019. 2D echo. LVEF 65%. Mild concentric left ventricular hypertrophy. RSVP 58 to 63 mmHg. Started on Bumex 2 mg p.o. daily and volume restriction. Home meds are atenolol 150 mg p.o. daily, Lasix 60 mg p.o. daily. Appears euvolemic at the time of discharge. No lower extremity edema, no JVD, PO2 WNL on RA. Continue cardiac diet. Resume home meds upon discharge. Outpatient PCP and cardiology follow-up. (2) Acute on chronic respiratory failure with hypoxia and hypercapnia Secondary to obesity hypoventilation syndrome. SPO2 WNL on RA. Was a started on nocturnal BiPAP. Resume CPAP upon discharge. Outpatient pulmonology follow-up and possible outpatient nocturnal polysomnography. (3) Anxiety Patient continues to demonstrate a significant overwhelming phobia for walking at this point Psychiatry consulted. Patient is currently on BuSpar. Patient will benefit from continued long-term psychotherapy as well. (4) Constipation Resolved. Last bowel movement x1 day. Was a started on p.o. and PRN Dulcolax and MiraLAX. Restart bowel regimen upon discharge encourage high-fiber diet. (5) Diabetes mellitus type 2 in obese Well-controlled. Home meds Metformin 500 mg p.o. twice daily. Globin A1c 6%. Start on cardiac diet, sliding scale insulin and hypoglycemia protocol. Restart home meds upon discharge. Outpatient PCP follow-up. (6) Longstanding persistent atrial fibrillation Rate controlled. Not anticoagulated. Patient has refused chronic anticoagulation. Was restarted on amiodarone, antiplatelets and beta-blockers. Restart amiodarone, beta-blockers and aspirin. Outpatient PCP and cardiology follow-up. (7) Moderate to severe pulmonary hypertension History of severe pulmonary hypertension most likely due to SAMI/obesity hypoventilation syndrome. 2D echo on 03/03/2019 RVSP of 58 to 63 mmHg, EF of 65%, mild to moderate mitral valve calcification with no evidence of regurgitation or stenosis, mild AV stenosis. Denies any history of CAD. No previous left heart cath. Uncertain nature of pulmonary hypertension potential culprits could be left heart failure or type III pulmonary hypertension caused by SAMI/OHS. Continue nocturnal CPAP. Diuretics. Cardiac diet. Outpatient PC pulmonology follow-up. (8) Morbid obesity with body mass index of 70 and over in adult BMI is 94.5. Certainly a negative contributing factor to many of her comorbidities. Patient a candidate for bariatric surgery. It was brought up to patient is unlikely but she adamantly refusing to discuss it or consider stating that she has been able to lose weight in the past and she is sure that she will do it again. (9) Chronic kidney disease Creatinine at baseline. Nonoliguric. Adequate urine output. Electrolytes WNL. Euvolemic. Avoid NSAIDs and other nephrotoxic meds. Patient nephrology follow-up. (10) Hypothyroid TSH 1.61. Nephrology following recommendations noted. Was restarted home meds. Resume home meds upon discharge. Outpatient PCP follow-up. Physical Exam Vital Signs: Temp Pulse Resp BP Pulse Ox 98.1 F 82 14 132/69 H 98 04/03/19 03:35 04/03/19 07:00 04/03/19 04:09 04/03/19 03:35 04/03/19 03:35 Intake & Output 04/02/19 04/03/19 04/04/19 06:59 06:59 06:59 Intake Total 975 1550 Output Total 1805 2050 Balance -830 -500 Weight 223.6 kg 223.2 kg General appearance: PRESENT: morbidly obese Head exam: PRESENT: atraumatic, normocephalic Respiratory exam: PRESENT: clear to auscultation rachel. ABSENT: rales, rhonchi, wheezes Cardiovascular exam: PRESENT: RRR. ABSENT: diastolic murmur, rubs, systolic murmur GI/Abdominal exam: PRESENT: normal bowel sounds, soft. ABSENT: distended, guarding, mass, organolmegaly, rebound, tenderness Neurological exam: PRESENT: alert, awake, oriented to person, oriented to place, oriented to time, oriented to situation, CN II-XII grossly intact. ABSENT: motor sensory deficit Results Laboratory Results: 03/31/19 04:43 04/01/19 09:20 03/19/19 03/20/19 03/20/19 21:23 03:06 10:15 Troponin I < 0.012 < 0.012 < 0.012 NT-Pro-B Natriuret Pep 9280 H 03/20/19 03/28/19 15:35 06:07 Troponin I < 0.012 NT-Pro-B Natriuret Pep 5040 H Impressions: Chest X-Ray 03/19/19 20:40 IMPRESSION: Cardiomegaly. Mixed interstitial and airspace opacities copyright 2010 [employer]- All Rights Reserved Shoulder X-Ray 03/19/19 20:40 IMPRESSION: Osteopenia. Minor degenerative change copyright 2010 [employer]- All Rights Reserved
[2019-04-03] MEDS: CYCLOBENZAPRINE HCL 10 MG TABLET PO PRN (11:55)
[2019-04-03 17:38] VITALS: BP 117/57
== END 2019-04-03 14:10 | disposition short-term general hospital (02) | DRG 291 ==
LOC: ER 18:47 → EH 23:09 → 3S 03-20 05:45
PROVIDERS: ADMIT Emergency Medicine; ATTEND Emergency Medicine
DX: I13.0 Hypertensive heart and chronic kidney disease with heart failure and stage 1 through stage 4 chronic kidney disease, or unspecified chronic kidney disease (principal); J96.21 Acute and chronic respiratory failure with hypoxia; I50.33 Acute on chronic diastolic (congestive) heart failure; J96.22 Acute and chronic respiratory failure with hypercapnia; N18.4 Chronic kidney disease, stage 4 (severe); I48.11 Longstanding persistent atrial fibrillation; E66.2 Morbid (severe) obesity with alveolar hypoventilation; E87.3 Alkalosis; Z68.45 Body mass index [BMI] 70 or greater, adult; D63.1 Anemia in chronic kidney disease; E03.9 Hypothyroidism, unspecified; I27.20 Pulmonary hypertension, unspecified; E87.5 Hyperkalemia; E11.22 Type 2 diabetes mellitus with diabetic chronic kidney disease; F41.8 Other specified anxiety disorders; M54.5 Low back pain; K59.00 Constipation, unspecified
CPT/HCPCS: 36415; 36600; 71045; 80048; 80053; 80069; 81001; 82803; 82962; 83036; 83605; 83735; 83880; 84484; 85025; 85027; 87040; 87077; 87150; 87186; 93005; 93010; 94640; 94660; 96374; 99285; J1644; J1940; J2930; J3490; J7030; J7620